=== PATIENT | male | born 1950 | race Caucasian/White ===

== ENCOUNTER 2022-08-08 08:27 | Inpatient (IN) | payer OTHER, MEDICARE ==
[2022-08-08] MEDS ORDERED: HYDROcodone/APAP 10-325MG 1 EACH TAB PO ONE (08:39)
--- NOTE | 2022-08-08 10:02 | XR ---
EXAMINATION TYPE: XR femur LT DATE OF EXAM: 08/08/2022 CLINICAL HISTORY: Pain TECHNIQUE: Two views of the left femur are obtained. COMPARISON: None FINDINGS: There is deformity of the greater trochanter of the left femur suspicious for fracture. Mi ld concentric narrowing of the hip joint. Mild diffuse osteopenia. Vascular calcification in the pelv is. IMPRESSION: 1. Findings suspicious for fracture greater trochanter left femur recommend CT scan for confirmation.
--- NOTE | 2022-08-08 10:04 | XR ---
EXAMINATION TYPE: XR pelvis AP view DATE OF EXAM: 08/08/2022 COMPARISON: NONE HISTORY: Pain Mild concentric narrowing of the hip joint bilaterally. Calcifications are likely vascular. There is questionable deformity involving the greater trochanter of the left hip.. No acute fracture is seen. Visualized bowel gas pattern is nonspecific. IMPRESSION: 1. Recommend CT of the left hip to assess greater trochanter for fracture..
--- NOTE | 2022-08-08 11:24 | CT ---
EXAMINATION TYPE: CT hip LT wo con DATE OF EXAM: 08/08/2022 COMPARISON: X-ray 08/08/2022 HISTORY: Pain CT DLP: 323.3 mGycm Automated exposure control for dose reduction was used. FINDINGS: There is a comminuted displaced fracture of the greater trochanter of the left femur with extension i nto the superior margin of the intertrochanteric line. Remaining osseous structures intact. Adjacent soft tissue edema noted. Fat-containing left inguinal h ernia noted. IMPRESSION: COMMINUTED DISPLACED FRACTURE GREATER TROCHANTER LEFT FEMUR WITH EXTENSION INTO THE SUPERIOR MARGIN O F THE INTERTROCHANTERIC LINE.
[2022-08-08] MEDS ORDERED: NALOXONE 0.4 MG/ML 1 ML VIAL IV PRN (12:07)
[2022-08-08] MEDS ORDERED: MAG HYDROX/AL HYDROX/SIMETH 30 ML CUP PO PRN (12:07)
[2022-08-08] MEDS ORDERED: DOCUSATE 100 MG CAP PO PRN (12:07)
[2022-08-08] MEDS ORDERED: TEMAZEPAM 15 MG CAP PO PRN (12:07)
[2022-08-08] MEDS ORDERED: ONDANSETRON 4 MG/2 ML VIAL IVP PRN (12:07)
--- NOTE | 2022-08-08 12:08 | ED ---
Fall HPI - General Chief Complaint: Fall Stated Complaint: Fall Time Seen by Provider: 08/08/22 08:32 Source: patient, EMS Mode of arrival: EMS - History of Present Illness Initial Comments: Patient had an accidental trip and fall last night. He denied his head. He did not lose conscious. He has pain in the left hip. The pain is worse with movement or walking. Pain does not radiate anywhere. He has taken medicine for this. - Related Data Home Medications Medication Instructions Recorded Confirmed Donepezil [Aricept] 5 mg PO HS 08/08/22 08/08/22 Escitalopram [Lexapro] 10 mg PO DAILY 08/08/22 08/08/22 LORazepam [Ativan] 0.5 mg PO HS 08/08/22 08/08/22 LORazepam [Ativan] 1 mg PO QAM 08/08/22 08/08/22 risperiDONE [RisperDAL] 3 mg PO BID 08/08/22 08/08/22 traZODone HCL 200 mg PO HS 08/08/22 08/08/22 Allergies Allergy/AdvReac Type Severity Reaction Status Date / Time No Known Allergies Allergy Verified 08/08/22 11:05 Review of Systems ROS Statement: Those systems with pertinent positive or pertinent negative responses have been documented in the HPI. ROS Other: All systems not noted in ROS Statement are negative. Past Medical History Smoking Status: Current every day smoker Past Alcohol Use History: None Reported Past Drug Use History: None Reported General Exam Limitations: no limitations General appearance: alert, in no apparent distress Head exam: Present: atraumatic, normocephalic, normal inspection Eye exam: Present: normal appearance, PERRL, EOMI. Absent: scleral icterus, conjunctival injection, periorbital swelling ENT exam: Present: normal exam, mucous membranes moist Neck exam: Present: normal inspection. Absent: tenderness, meningismus, lymphadenopathy Respiratory exam: Present: normal lung sounds bilaterally. Absent: respiratory distress, wheezes, rales, rhonchi, stridor Cardiovascular Exam: Present: regular rate, normal rhythm, normal heart sounds. Absent: systolic murmur, diastolic murmur, rubs, gallop, clicks GI/Abdominal exam: Present: soft, normal bowel sounds. Absent: distended, tenderness, guarding, rebound, rigid Extremities exam: Present: normal inspection, tenderness, normal capillary refill. Absent: full ROM, pedal edema, joint swelling, calf tenderness Back exam: Present: normal inspection Neurological exam: Present: alert, oriented X3, CN II-XII intact Psychiatric exam: Present: normal affect, normal mood Skin exam: Present: warm, dry, intact, normal color. Absent: rash Course Vital Signs 08/08/22 08/08/22 08:30 11:34 Temperature 98.1 F 98.1 F Pulse Rate 89 62 Respiratory 18 16 Rate Blood Pressure 124/92 114/53 O2 Sat by Pulse 98 98 Oximetry Medical Decision Making - Medical Decision Making Patient presents with an accidental trip and fall. I considered a CT of the head, but the patient denies head or neck injury and has had no loss of consciousness or other neurological symptoms. I did obtain x-ray of the left hip, as well as a CT of the left hip. These imaging studies were independently reviewed by me which show an intertrochanteric fracture. I ordered the patient pain medicine by mouth. I had a discussion with orthopedic surgeon. Patient will require admission to the hospital. Was pt. sent in by a medical professional or institution (, PA, NURSES DIRECTOR, urgent care, hospital, or correction...) When possible be specific @ -[No] Did you speak to anyone other than the patient for history (EMS, parent, family, police, friend...)? What history was obtained from this source @ -[No] Did you review nursing and triage notes (agree or disagree)? Why? @ -[I reviewed and agree with nursing and triage notes] Were old charts reviewed (outside hosp., previous admission, EMS record, old EKG, old radiological studies, urgent care reports/EKG's, correction records)? Report findings @ -[No old charts were reviewed] Differential Diagnosis (chest pain, altered mental status, abdominal pain women, abdominal pain men, vaginal bleeding, weakness, fever, dyspnea, syncope, headache, dizziness, GI bleed, back pain, seizure, CVA, palpatations, mental health)? @ -[not applicable] EKG interpreted by me (3pts min.). @ -[As above] X-rays interpreted by me (1pt min.). @ -[None done] CT interpreted by me (1pt min.). @ -[None done] U/S interpreted by me (1pt. min.). @ -[None done] What testing was considered but not performed or refused? (CT, X-rays, U/S, labs)? Why? @ -[None] What meds were considered but not given or refused? Why? @ -[None] Did you discuss the management of the patient with other professionals (professionals i.e. , PA, NURSES DIRECTOR, lab, RT, psych nurse, psychosocial rehabilitation counselor, medical assembly, teacher, police officer, protective services case worker)? Give summary @ -[No] Was smoking cessation discussed for >3mins.? @ -[No] Was critical care preformed (if so, how long)? @ -[No] Were there social determinants of health that impacted care today? How? (Homelessness, low income, unemployed, alcoholism, drug addiction, transportation, low edu. Level, literacy, decrease access to med. care, assisted, rehab)? @ -[No] Was there de-escalation of care discussed even if they declined (Discuss DNR or withdrawal of care, Hospice)? DNR status @ -[No] What co-morbidities impacted this encounter? (DM, HTN, Smoking, COPD, CAD, Cancer, CVA, ARF, Chemo, Hep., AIDS, mental health diagnosis, sleep apnea, morbid obesity)? @ -[None] Was patient admitted / discharged? Hospital course, mention meds given and route, prescriptions, significant lab abnormalities, going to OR and other pertinent info. @ -[hospital course] Undiagnosed new problem with uncertain prognosis? @ -[No] Drug Therapy requiring intensive monitoring for toxicity (Heparin, Nitro, Insulin, Cardizem)? @ -[No] Were any procedures done? @ -[No] Diagnosis/symptom? @ -[default] Acute, or Chronic, or Acute on Chronic? @ -[default] Uncomplicated (without systemic symptoms) or Complicated (systemic symptoms)? @ -[default] Side effects of treatment? @ -[No] Exacerbation, Progression, or Severe Exacerbation? @ -[No] Poses a threat to life or bodily function? How? (Chest pain, [place], HI, pneumonia, PE, COPD, DKA, ARF, appy, cholecystitis, CVA, Diverticulitis, Homicidal, Suicidal, threat to staff... and all critical care pts) @ -[No] Disposition Clinical Impression: Femur fracture, left Disposition: ADMITTED IP TO THIS HOSP Is patient prescribed a controlled substance at d/c from ED?: No Referrals: [facility],Clinic [Primary Care Provider] - 1-2 days
[2022-08-08 13:16] LABS: Partial Thromboplastin Time 24.1 sec (22.0-30.0); Prothrombin Time 10.4 sec (9.0-12.0)
[2022-08-08 13:18] LABS: Basophils % (A) 0 %; Eosinophils % (A) 0 %; HCT 39.5 % (39.0-53.0); HGB 13.2 gm/dL (13.0-17.5); Lymphocytes # (A) 1.7 k/uL (1.0-4.8); Lymphocytes % (A) 19 %; MCH 32.6 pg (25.0-35.0); MCHC 33.5 g/dL (31.0-37.0); MCV 97.5 fL (80.0-100.0); Mean Platelet Volume 7.1; Monocytes # (A) 0.7 k/uL (0-1.0); Monocytes % (A) 7 %; Neutrophils # (A) 6.3 k/uL (1.3-7.7); Neutrophils % (A) 72 %; Platelet Count 199 k/uL (150-450); RBC 4.05 m/uL (4.30-5.90); RDW 12.8 % (11.5-15.5); WBC 8.8 k/uL (3.8-10.6)
[2022-08-08 13:20] LABS: Calcium 8.6 mg/dL (8.4-10.2); Potassium 4.1 mmol/L (3.5-5.1)
--- NOTE | 2022-08-08 15:25 | XR ---
EXAMINATION TYPE: XR chest 1V portable DATE OF EXAM: 08/08/2022 2:55 PM COMPARISON: None TECHNIQUE: XR chest 1V portable Portable AP radiograph of the chest. CLINICAL INDICATION:Male, 71 years old with history of pre-op; FINDINGS: Lungs/Pleura: There is no evidence of pleural effusion, focal consolidation, or pneumothorax. Pulmonary vascularity: Unremarkable. Heart/mediastinum: Cardiomediastinal silhouette is unremarkable. Musculoskeletal: No acute osseous pathology. IMPRESSION: No acute cardiopulmonary disease/process.
[2022-08-08] MEDS: DONEPEZIL 5 MG TAB PO SCH (21:19)
[2022-08-08] MEDS: traZODone HCL 100 MG TAB PO SCH (21:19)
[2022-08-08] MEDS: risperiDONE 1 MG TAB PO SCH (21:19)
[2022-08-08] MEDS: LORazepam 0.5 MG TAB PO SCH (21:19)
--- NOTE | 2022-08-08 21:21 | P.HPOR ---
History of Present Illness H&P Date: 08/08/22 This patient is a 71- year old male who presented to [facility] emergency department today with complaints of left hip pain following a fall. Patient had a fall last evening at home. He continued to have pain in the left hip, therefore EMS transported patient to the emergency department. X-rays and CT scan in the emergency department revealed a non-displaced fracture of the left greater trochanter with extension into the intertrochanteric region. Patient was admitted under the care of orthopedic surgery. Patient is examined bedside this evening with Dr. Morataya. No verbalized complaints. Vital signs stable. Past Medical History Past Medical History: No Reported History History of Any Multi-Drug Resistant Organisms: None Reported Past Surgical History: No Surgical Hx Reported Past Anesthesia/Blood Transfusion Reactions: No Reported Reaction Past Psychological History: Anxiety, Bipolar, PTSD, Schizophrenia Additional Psychological History / Comment(s): Does not like bright lights secondary to PTSD from the Smoking Status: Current every day smoker Past Alcohol Use History: None Reported Past Drug Use History: None Reported - Past Family History Father Family Medical History: Cancer Medications and Allergies Home Medications Medication Instructions Recorded Confirmed Type Donepezil [Aricept] 5 mg PO HS 08/08/22 08/08/22 History Escitalopram [Lexapro] 10 mg PO DAILY 08/08/22 08/08/22 History LORazepam [Ativan] 0.5 mg PO HS 08/08/22 08/08/22 History LORazepam [Ativan] 1 mg PO QAM 08/08/22 08/08/22 History risperiDONE [RisperDAL] 3 mg PO BID 08/08/22 08/08/22 History traZODone HCL 200 mg PO HS 08/08/22 08/08/22 History Allergies Allergy/AdvReac Type Severity Reaction Status Date / Time Penicillins Allergy Rash/Hives Verified 08/08/22 15:27 Physical Examination On examination, patient is lying in bed in no apparent distress. He is alert and answers questions appropriately. Head appears normocephalic and atraumatic. Breathing appears non-labored. Motor, sensory function grossly intact LLE. Results X-ray left femur and pelvis, CT scan left hip reviewed. - Labs Labs: Abnormal Lab Results - Last 24 Hours (Table) 01/18/23 01/18/23 Range/Units 12:40 12:40 RBC 4.05 L (4.30-5.90) m/uL Sodium 136 L (137-145) mmol/L BUN 21 H (9-20) mg/dL Glucose 100 H (74-99) mg/dL H & H 08/08/22 Range/Units 12:40 Hgb 13.2 (13.0-17.5) gm/dL Hct 39.5 (39.0-53.0) % Coagulation 08/08/22 Range/Units 12:40 INR 1.0 (<1.2) Result Diagrams: 08/08/22 12:40 08/08/22 12:40 Assessment and Plan Assessment: Non-displaced fracture left greater trochanter with intertrochanteric extension Plan: - Patient was discussed with Dr. Morataya. MRI left hip ordered to further evaluate extent of intertrochanteric extension of fracture. - Patient is to remain non-weight bearing on left lower extremity. Pain management as needed. - Internal medicine consulted for medical management. - Further recommendations pending MRI results. Patient will be made NPO at midnight for possible OR tomorrow afternoon.
--- NOTE | 2022-08-09 01:14 | P.CONS ---
History of Present Illness - Reason for Consult Consult date: 08/08/22 - History of Present Illness The patient is 71-year-old male with a PMH of PTSD and depression, resident of [facility], brought into the emergency room via EMS for left hip pain. The patient reports that he fell at his living facility when he was walking to the bathroom and lost his balance, falling on his left side and hitting his hip on the ground. He reports constant pain of the left hip and being unable to ambulate. He denied hitting his head or losing consciousness. Reports the pain is a 4 out of 10 at rest and 10 out of 10 with any movement of the left leg. Reports that he normally is able to ambulate without assistive devices and is able to climb stairs without difficulty. Denied experiencing headaches, visual disturbances, chest discomfort, shortness of breath, nausea, palpitations, vomiting. Denied fever, chills, cough, abdominal pain, diarrhea. Denied lower extremities swelling, numbness, or tingling. Left hip CT in the emergency room revealed a comminuted displaced fracture of the greater trochanter of the left femur with extension into the superior margin of the intertrochanteric line. Chest x-ray was unremarkable. EKG revealed normal sinus rhythm at [address]/T-wave changes noted as reviewed by me. Review of systems: Pertinent positives and negatives as discussed in HPI, a complete review of systems was performed and all other systems are negative. Physical examination: General: non toxic, no distress, appears at stated age, normal weight Derm: no unusual rashes/lesions, warm Head: atraumatic, normocephalic, symmetric Eyes: EOMI, no lid lag, anicteric sclera, pupils equal round reactive to light ENT: Nose and ears atraumatic Neck: No cervical lymphadenopathy, trachea midline, supple Mouth: no lip lesion, mucus membranes moist Cardiovascular: S1S2 reg, no murmur, positive dorsalis pedis pulse bilateral, no edema Lungs: CTA bilateral, no rhonchi, no rales, no accessory muscle use Abdominal: soft, nontender to palpation, no guarding Ext: muscle strength 5 out of 5 bilateral upper extremities, strength 5 out of 5 right lower extremity and 2 out of 5 of proximal left lower extremity due to pain, no gross muscle atrophy, no contractures, left lateral hip tenderness without overlying skin abnormalities Neuro: CN II-XI grossly intact, no gross focal neuro deficits Psych: Alert, oriented, appropriate affect Assessment/plan Preoperative evaluation -RCRI score: 0 points (3.9% 30 day risk of cardiovascular complications) -METS > 4 -Patient denied experiencing exertional chest discomfort or SOB. Reports that he is able to climb a flight of stairs without difficulty. Patient reports he is independent in most ADLs -Laboratory evaluation and EKG reviewed and grossly unremarkable -Patient is currently optimized for orthopedic procedure with no clear modifiable risk factors Chronic conditions: PTSD, depression -Continue with home meds Left femoral fracture -Defer management including pain control and DVT prophylaxis to the primary surgery service We appreciate this opportunity to be involved in this patient's care. We will follow the patient with you. For any further questions, please not hesitate to contact the [facility] [place] inpatient team. Past Medical History Past Medical History: No Reported History History of Any Multi-Drug Resistant Organisms: None Reported Past Surgical History: No Surgical Hx Reported Past Anesthesia/Blood Transfusion Reactions: No Reported Reaction Past Psychological History: Anxiety, Bipolar, PTSD, Schizophrenia Additional Psychological History / Comment(s): Does not like bright lights secondary to PTSD from the Smoking Status: Current every day smoker Past Alcohol Use History: None Reported Past Drug Use History: None Reported - Past Family History Father Family Medical History: Cancer Medications and Allergies Home Medications Medication Instructions Recorded Confirmed Type Donepezil [Aricept] 5 mg PO HS 08/08/22 08/08/22 History Escitalopram [Lexapro] 10 mg PO DAILY 08/08/22 08/08/22 History LORazepam [Ativan] 0.5 mg PO HS 08/08/22 08/08/22 History LORazepam [Ativan] 1 mg PO QAM 08/08/22 08/08/22 History risperiDONE [RisperDAL] 3 mg PO BID 08/08/22 08/08/22 History traZODone HCL 200 mg PO HS 08/08/22 08/08/22 History Allergies Allergy/AdvReac Type Severity Reaction Status Date / Time Penicillins Allergy Rash/Hives Verified 08/08/22 15:27 Physical Exam Vitals: Vital Signs Temp Pulse Pulse Resp BP BP Pulse Ox 08/08/22 19:33 98.2 F 83 17 104/61 95 08/08/22 14:00 98.2 F 67 18 96 08/08/22 12:42 98 F 66 16 113/59 97 08/08/22 11:34 98.1 F 62 16 114/53 98 08/08/22 08:30 98.1 F 89 18 124/92 98 Intake and Output 08/08/22 08/08/22 08/09/22 14:59 22:59 06:59 Intake Total 500 Output Total 500 Balance 500 -500 Intake: Oral 500 Output: Urine 500 Other: Voiding Method Urinal Diaper Weight 65.771 kg 65.771 kg Results CBC & Chem 7: 08/08/22 12:40 08/08/22 12:40 Labs: Abnormal Lab Results - Last 24 Hours (Table) 08/08/22 08/08/22 Range/Units 12:40 12:40 RBC 4.05 L (4.30-5.90) m/uL Sodium 136 L (137-145) mmol/L BUN 21 H (9-20) mg/dL Glucose 100 H (74-99) mg/dL
[2022-08-09] MEDS: LORazepam 1 MG TAB PO SCH (09:00)
[2022-08-09] MEDS: ESCITALOPRAM 10 MG TAB PO SCH (09:00)
[2022-08-09] MEDS: risperiDONE 1 MG TAB PO SCH ×2 (09:01→20:34)
[2022-08-09 11:46] LABS: Glucose,Whole Blood 101 mg/dL (70-110)
--- NOTE | 2022-08-09 11:52 | MR ---
EXAMINATION TYPE: MR hip LT wo con DATE OF EXAM: 08/09/2022 COMPARISON: CT scan 08/08/2022 HISTORY: GT fracture, r/u IT extension. Standard multiplanar, multisequence MRI departmental protocol Multiplanar, multisequence images of the left hip were acquired without contrast. FINDINGS: There is diffuse abnormal soft tissue edema along the lateral margin of the left hip and femur. There appears to be irregular signal characteristics at the lateral insertion of the gluteus medius compat ible with partial tear. There is a comminuted displaced fracture of the greater trochanter with definitive intertrochanteric extension have best seen on coronal T1 axial image 15. Correlate for chronic cystitis. Remaining osseous structures intact. IMPRESSION: 1. Comminuted greater trochanteric fracture left femur with intertrochanteric extension confirmed. 2. Extensive soft tissue edema along the lateral margin of the left hip and femur with findings highl y suspicious for a partial tear of the lateral insertion of the gluteus medius.
[2022-08-09] MEDS ORDERED: TRANEXAMIC ACID 1,000 MG in SODIUM CHLORIDE 0.9% 100 ML IVPB ONE ×2 (15:55→15:56)
[2022-08-09] MEDS ORDERED: LACTATED RINGERS 1,000 ML IV ONE ×2 (16:02→18:25)
[2022-08-09] MEDS ORDERED: ONDANSETRON 4 MG/2 ML VIAL IVP ONE (16:12)
[2022-08-09] MEDS ORDERED: DEXAMETHASONE SOD PHOSPHATE 4 MG/ML 1 ML VIAL IVP ONE (16:12)
[2022-08-09] MEDS ORDERED: TRANEXAMIC ACID IN NACL,ISO-OS 1,000 MG/100 ML BAG ONE (17:15)
[2022-08-09] MEDS ORDERED: PHENYLEPHRINE-0.9% NACL SYG 1,000 MCG/10 ML SYRINGE ONE (17:15)
[2022-08-09] MEDS ORDERED: MIDAZOLAM 2 MG/2 ML VIAL ONE (17:15)
[2022-08-09] MEDS ORDERED: fentaNYL (PF) 50 MCG/ML 2 ML AMP ONE (17:15)
[2022-08-09] MEDS ORDERED: ePHEDrine 50 MG/ML 1 ML VIAL ONE (17:15)
[2022-08-09] MEDS ORDERED: PROPOFOL 10 MG/ML 20 ML VIAL IV ONE (17:15)
[2022-08-09 17:16] LABS: Glucose,Whole Blood 100 mg/dL (70-110)
[2022-08-09] MEDS ORDERED: HYDROmorphone 0.5 MG/0.5 ML SYRINGE IVP PRN ×3 (18:56)
--- NOTE | 2022-08-09 18:57 | P.OP ---
Date of Procedure: 08/09/22 Preoperative Diagnosis: 1. Left greater trochanter fracture with intertrochanteric extension 2. Posttraumatic stress disorder Postoperative Diagnosis: Same Procedure(s) Performed: Operative fixation of left intertrochanteric hip fracture with intramedullary hip screw Anesthesia: spinal Surgeon: Herman Morataya Cafe Attendant #1: Jony Kelley Estimated Blood Loss (ml): 50 IV fluids (ml): 800 Pathology: none sent Condition: stable Disposition: PACU Indications for Procedure: The patient's request 71-year-old male with a medical history significant for posterior medical stress disorder who sustained a ground-level fall resulting in the left hip injury. He was seen in the emergency department and admitted under the care of my partner Dr. Siu. Dr. Siu was going out of town and requested that I assist in managing this patient. The patient had an x-ray and computed tomography scan which showed an isolated greater trochanteric fracture with questionable intertrochanteric extension. An MRI was obtained which showed intertrochanteric extension with almost the entire intertrochanteric region involved. I discussed with the sister need for operative intervention to stabilize the fracture and prevent displacement while also allowing early mobilization. I met with the patient and their family preoperatively to discuss their injury and treatment options. They have an extra-capsular, intertrochanteric hip fr acture and my recommendation was to stabilize the fracture with an intramedullary hip screw to facilitate early mobilization. We discussed the potential risks and complications of this surgical procedure including but certainly not limited to risks from anesthesia, superficial infection, deep infection, fracture nonunion, fracture malunion, hardware failure including broken hardware, varus collapse with lag screw cut out of the femoral head, progression of hip arthritis, limb length discrepancy, symptomatic hardware, need for further surgery including hardware removal and conversion to arthro plasty, DVT, PE, acute coronary event, pressure ulcers, urinary tract infection, failure to thrive, an inability to regain preinjury level of function, and possibly . The patient and their family understand these potential complications and also awknowledge that other less common complications are possible. They provided both their verbal and written consent to go forward with operative fixation of their hip fracture with an intramedullary hip screw. Description of Procedure: The patient was identified in preoperative holding and the correct operative extremity was marked with my initials. I reviewed the consent form with the patient and their family and all of their questions were answered. The patient was then brought back to the operating room by anesthesia. Anesthesia, preoperative antibiotics, and tranexamic acid were given by the anesthesia team while on the gurney. Both ankles were padded with webril and boots for the [place] table were applied. The patient was then carefully transferred onto the [place] table. A perineal post was immediately placed. The contralateral arm was secured on a well-padded arm ledesma. The ipsilateral arm was draped across the chest and secured with a pillow, foam, and paper tape to allow access to the proximal femur. Nonsterile drapes were applied to the operative extremity. The height of the table was elevated and the contralateral extremity was dropped towards the floor to facilitate imaging. A timeout was performed identifying the correct patient, operative extremity, and procedure. Fluoroscopy was brought in to assess the fracture. A provisional reduction was performed using longitudinal traction, adduction, and internal rotation. An AP and lateral view were obtained to assess the reduction. The operative extremity was then prepped and draped in the standard sterile fashion. A straight incision was made at the tip of the greater trochanter and extended proximally for 3 cm. Skin and subcutaneous tissues were incised sharply. The underlying fascia was incised in line with the skin incision. An awl was placed just medial to the tip of the greater trochanter on the AP view and coli near with the canal on the lateral view. A 3.2 mm guide pin was then advanced into the proximal femur. The position of the guidepin was verified with fluoroscopy. An opening reamer and soft tissue cannula were placed over the guidepin and used to open the proximal femur to the level of the lesser trochanter. The 3.2 mm guide pin and opening reamer were removed. A short gamma nail was dispensed, hooked up to the targeting arm and I verified that the trochar through the targeting arm lined up with the slots on the nail. The nail was then impacted into the proximal femur until the appropriate depth had been reached. A small stab incision was made over the lateral aspect of the femur using the targeting arm as a reference for the lag screw. Incision was carried down to the skin and fascia down to the lateral cortex of the femur. The trocar was then placed up to the lateral cortex of the femur and a guidepin was placed in the low center position on the AP view and centered in the femoral head on the lateral view. Once the position of the guidewire was verified, we reamed to appropriate depth and placed a lag screw over the guidewire and into the femoral head. The position of the lag screw was assessed with fluoroscopy. The guidewire was then removed from the femoral head. The set screw was placed proximally, brought fully down and then released a quarter turn to allow c ompression. A final stab incision was made over the lateral femur at the site of the distal interlocking screw, again using the targeting arm as a reference. The trocar and sleeve were placed to the lateral cortex of the femur. We then drilled and placed a distal interlocking screw. Final fluoroscopic images were taken showing excellent reduction of the fracture and appropriate position of the implants. All wounds were thoroughly irrigated and closed in layers. Sterile dressings were applied. The drapes were taken down, the patient was transferred off the [place] table, and was brought to recovery having tolerated the procedure well. Jony Kelley PA-C was required as a skilled podiatry assistant for patient positioning, retraction, placement of implants, closure of wounds, and application of d ressings. PLAN: The patient can weight-bear as tolerated on their operative extremity. 2 doses of postoperative antibiotics. DVT prophylaxis with aspirin 81 mg twice a day starting the day of surgery. Dressing change on postoperative day #2. Appreciate Internal Medical assistance with perioperative medical management. Discharge planning in process.
--- NOTE | 2022-08-09 19:04 | P.PN ---
Progress Note - Text Progress Note Date: 08/09/22 Patient unavailable to be seen. Went down for MRI hip earlier. Currently in the OR.
[2022-08-09] MEDS: LACTATED RINGERS 1,000 ML IV SCH (20:01)
[2022-08-09] MEDS: DONEPEZIL 5 MG TAB PO SCH (20:34)
[2022-08-09] MEDS: traZODone HCL 100 MG TAB PO SCH (20:34)
[2022-08-09] MEDS: ASPIRIN 81 MG PO SCH (20:35)
[2022-08-09] MEDS: SENNOSIDES-DOCUSATE SODIUM 1 EACH TAB PO SCH (20:35)
[2022-08-09] MEDS: LORazepam 0.5 MG TAB PO SCH (20:35)
[2022-08-09 21:12] LABS: Basophils % (A) 0 %; Eosinophils % (A) 0 %; HCT 42.3 % (39.0-53.0); HGB 13.5 gm/dL (13.0-17.5); Lymphocytes # (A) 0.5 k/uL (1.0-4.8); Lymphocytes % (A) 5 %; MCH 32.3 pg (25.0-35.0); Mean Platelet Volume 7.3; Monocytes # (A) 0.2 k/uL (0-1.0); Monocytes % (A) 2 %; Neutrophils # (A) 9.5 k/uL (1.3-7.7); Neutrophils % (A) 92 %; Platelet Count 193 k/uL (150-450); RBC 4.19 m/uL (4.30-5.90); RDW 13.2 % (11.5-15.5); WBC 10.3 k/uL (3.8-10.6)
--- NOTE | 2022-08-09 21:19 | XR ---
PROCEDURE: XR Hip Complete LT; 6:55 PM CLINICAL INDICATION: Intraoperative Left hip fx TECHNIQUE: Department protocol COMPARISON: None FINDINGS: Fluoroscopy was used for the procedure; total of 59 seconds were utilized. 5 images were digitally stored on PACS. IMPRESSION: Fluoroscopy-guided Left hip procedure.
[2022-08-10] MEDS: LACTATED RINGERS 1,000 ML IV SCH ×3 (06:17→18:15)
--- NOTE | 2022-08-10 06:47 | FL ---
Intraoperative/procedural fluoroscopic services were provided. Total fluoroscopy time is 59 seconds w ith a total of 5 submitted images to PACS. Please see the operative note for further details.
[2022-08-10] MEDS: LORazepam 1 MG TAB PO SCH (09:07)
[2022-08-10] MEDS: risperiDONE 1 MG TAB PO SCH ×2 (09:07→20:32)
[2022-08-10] MEDS: ASPIRIN 81 MG PO SCH ×2 (09:07→20:31)
[2022-08-10] MEDS: ESCITALOPRAM 10 MG TAB PO SCH (09:07)
--- NOTE | 2022-08-10 15:07 | P.PN ---
Subjective Progress Note Date: 08/10/22 This patient is a 71-year-old male who is status-post operative fixation of left intertrochanteric hip fracture with intramedullary hip screw on 08/09/22. Today is postoperative day #1. The patient is examined bedside this morning with Dr. Yu. Patient is currently up to the bedside chair. He states the pain in the left hip is well controlled at this time. No new complaints or concerns. Vital signs stable. Objective - Vital Signs Vital signs: Vital Signs Temp 97.5 F L 08/10/22 07:04 Pulse 80 08/10/22 07:04 Resp 17 08/10/22 07:04 BP 122/69 08/10/22 07:04 Pulse Ox 97 08/10/22 07:04 FiO2 Intake & Output 08/09/22 08/10/22 08/10/22 18:59 06:59 18:59 Intake Total 1550 1911 Output Total 90 4530 1550 Balance 1460 -2619 -1550 Intake: IV 1550 Intake, IV Titration 1200 Amount Lactated Ringers 1,000 ml 1200 @ 100 mls/hr IV .Q10H KHALIDA Rx#:[id number] Oral 711 Output: Urine 40 4530 1550 Uretheral ([place]) 2700 100 Estimated Blood Loss 50 Other: Voiding Method Urinal Indwelling Catheter Indwelling Catheter # Voids 2 # Bowel Movements 1 - Exam On examination, patient is sitting up in a bedside chair in no apparent distress. He is alert and answers questions appropriately. Surgical dressings in place over the left hip are clean, dry, and intact. Patient is neurovascular intact of the left lower extremity. - Labs CBC & Chem 7: 08/09/22 20:07 08/08/22 12:40 Labs: Abnormal Lab Results - Last 24 Hours (Table) 08/09/22 Range/Units 20:07 RBC 4.19 L (4.30-5.90) m/uL MCV 101.0 H (80.0-100.0) fL Neutrophils # 9.5 H (1.3-7.7) k/uL Lymphocytes # 0.5 L (1.0-4.8) k/uL Assessment and Plan Assessment: Status-post operative fixation of left intertrochanteric hip fracture with intramedullary hip screw on 1/19/23. Post-operative day #1. Plan: - Weight-bear to tolerance on operative extremity with a walker. Up with assistance. - Physical therapy for gait and balance training. - Pain management as needed. Aspirin 81 mg BID for DVT prophylaxis. - Leave operative dressings in place. - 2 doses of postoperative IV antibiotics complete. - Medical management per internal medicine team. - Case management consulted for discharge planning.
--- NOTE | 2022-08-10 15:34 | P.PN ---
Subjective Progress Note Date: 08/10/22 Patient was seen and examined. No acute events overnight. Patient reports well-controlled pain in his left hip. Currently sitting up in a chair. Plans to work with physical therapy later on today. General: non toxic, no distress, appears at stated age Derm: warm, dry Head: atraumatic, normocephalic, symmetric Eyes: EOMI, no lid lag, anicteric sclera Mouth: no lip lesion, mucus membranes moist Cardiovascular: S1S2 reg, no murmur Lungs: CTA bilateral, no rhonchi, no rales , no accessory muscle use Ext: no gross muscle atrophy, no edema, no contractures Neuro: no focal neuro deficits Psych: Alert, oriented, appropriate affect Left femoral fracture POD 1 -Defer management including pain control and DVT prophylaxis to the primary surgery service Preoperative evaluation -RCRI score: 0 points (3.9% 30 day risk of cardiovascular complications) -METS > 4 -Patient denied experiencing exertional chest discomfort or SOB. Reports that he is able to climb a flight of stairs without difficulty. Patient reports he is independent in most ADLs -Laboratory evaluation and EKG reviewed and grossly unremarkable -Patient is currently optimized for orthopedic procedure with no clear modifiable risk factors Chronic conditions: PTSD, depression -Continue with home meds PT and OT consulted. He is pending clinical improvement. Medically stable. Thank you for this consultation. Please call [facility] with additional questions or concerns. Objective - Vital Signs Vital signs: Vital Signs Temp 97.5 F L 08/10/22 07:04 Pulse 80 08/10/22 07:04 Resp 17 08/10/22 07:04 BP 122/69 08/10/22 07:04 Pulse Ox 97 08/10/22 07:04 FiO2 Intake & Output 08/09/22 08/10/22 08/10/22 18:59 06:59 18:59 Intake Total 1550 1911 Output Total 90 4530 1550 Balance 1460 -2619 -1550 Intake: IV 1550 Intake, IV Titration 1200 Amount Lactated Ringers 1,000 ml 1200 @ 100 mls/hr IV .Q10H KHALIDA Rx#:[id number] Oral 711 Output: Urine 40 4530 1550 Uretheral ([place]) 2700 100 Estimated Blood Loss 50 Other: Voiding Method Urinal Indwelling Catheter Indwelling Catheter # Voids 2 # Bowel Movements 1 - Labs CBC & Chem 7: 08/09/22 20:07 08/08/22 12:40 Labs: Abnormal Lab Results - Last 24 Hours (Table) 08/09/22 Range/Units 20:07 RBC 4.19 L (4.30-5.90) m/uL MCV 101.0 H (80.0-100.0) fL Neutrophils # 9.5 H (1.3-7.7) k/uL Lymphocytes # 0.5 L (1.0-4.8) k/uL
[2022-08-10] MEDS: SENNOSIDES-DOCUSATE SODIUM 1 EACH TAB PO SCH (20:32)
[2022-08-10] MEDS: LORazepam 0.5 MG TAB PO SCH (20:32)
[2022-08-10] MEDS: traZODone HCL 100 MG TAB PO SCH (20:32)
[2022-08-10] MEDS: DONEPEZIL 5 MG TAB PO SCH (20:32)
[2022-08-11] MEDS: ASPIRIN 81 MG PO SCH ×2 (08:35→20:41)
[2022-08-11] MEDS: LORazepam 1 MG TAB PO SCH (08:35)
[2022-08-11] MEDS: ESCITALOPRAM 10 MG TAB PO SCH (08:35)
[2022-08-11] MEDS: risperiDONE 1 MG TAB PO SCH ×2 (08:35→20:42)
[2022-08-11] MEDS: HYDROcodone/APAP 5-325MG 1 EACH TAB PO PRN ×2 (08:55→15:13)
--- NOTE | 2022-08-11 11:04 | P.PN ---
Subjective Progress Note Date: 08/11/22 The patient is complaining of some discomfort in his left hip this morning but is otherwise without complaints. Objective - Vital Signs Vital signs: Vital Signs Temp 97.8 F 08/11/22 06:58 Pulse 84 08/11/22 08:00 Resp 18 08/11/22 08:00 BP 97/58 08/11/22 06:58 Pulse Ox 98 08/11/22 06:58 FiO2 Intake & Output 08/10/22 08/11/22 08/11/22 18:59 06:59 18:59 Output Total 1770 0 Balance -1770 0 Output: Urine 1770 0 Uretheral ([place]) 100 Other: Voiding Method Indwelling Catheter Urinal Urinal # Voids 1 - Exam The patient is sitting in a chair with a blanket over his head. After removal of the blanket he appears in no apparent distress and is alert and able to answer questions. Focused exam of the left hip was conducted. On inspection there clean-appearing dressings. His thigh and calf are soft. He is able to actively dorsiflex and plantar flex his ankle and his toes. - Labs CBC & Chem 7: 08/09/22 20:07 08/08/22 12:40 Assessment and Plan Assessment: Postoperative day #2 status post left hip gamma nail Post-traumatic stress disorder Plan: The patient is doing well from orthopedic standpoint. Continue postoperative care from an orthopedic standpoint as outlined previously. I encouraged the patient to mobilize out of bed as his hip has been surgically repaired and he can weight-bear as tolerated with assistance. We're currently the process of discharge planning.
--- NOTE | 2022-08-11 13:31 | P.PN ---
Subjective Progress Note Date: 08/11/22 Patient was seen and examined. No acute events overnight. Patient reports well-controlled pain in his left hip. Currently sitting up in a chair. Plans to work with physical therapy later on today. General: non toxic, no distress, appears at stated age Derm: warm, dry Head: atraumatic, normocephalic, symmetric Eyes: EOMI, no lid lag, anicteric sclera Mouth: no lip lesion, mucus membranes moist Cardiovascular: S1S2 reg, no murmur Lungs: CTA bilateral, no rhonchi, no rales , no accessory muscle use Ext: no gross muscle atrophy, no edema, no contractures Neuro: no focal neuro deficits Psych: Alert, oriented, appropriate affect Left femoral fracture POD 2 -Defer management including pain control and DVT prophylaxis to the primary surgery service Preoperative evaluation -RCRI score: 0 points (3.9% 30 day risk of cardiovascular complications) -METS > 4 -Patient denied experiencing exertional chest discomfort or SOB. Reports that he is able to climb a flight of stairs without difficulty. Patient reports he is independent in most ADLs -Laboratory evaluation and EKG reviewed and grossly unremarkable -Patient is currently optimized for orthopedic procedure with no clear modifiable risk factors Chronic conditions: PTSD, depression -Continue with home meds PT and OT consulted. He is pending clinical improvement. Medically stable. Thank you for this consultation. Please call [facility] with additional questions or concerns. Objective - Vital Signs Vital signs: Vital Signs Temp 97.8 F 08/11/22 06:58 Pulse 84 08/11/22 08:00 Resp 18 08/11/22 08:00 BP 97/58 08/11/22 06:58 Pulse Ox 98 08/11/22 06:58 FiO2 Intake & Output 08/10/22 08/11/22 08/11/22 18:59 06:59 18:59 Output Total 1770 0 Balance -1770 0 Output: Urine 1770 0 Uretheral ([place]) 100 Other: Voiding Method Indwelling Catheter Urinal Urinal # Voids 1 - Labs CBC & Chem 7: 08/09/22 20:07 08/08/22 12:40
[2022-08-11] MEDS: LACTATED RINGERS 1,000 ML IV SCH (15:09)
[2022-08-11] MEDS: SENNOSIDES-DOCUSATE SODIUM 1 EACH TAB PO SCH (20:42)
[2022-08-11] MEDS: LORazepam 0.5 MG TAB PO SCH (20:42)
[2022-08-11] MEDS: traZODone HCL 100 MG TAB PO SCH (20:42)
[2022-08-11] MEDS: DONEPEZIL 5 MG TAB PO SCH (20:42)
[2022-08-11 22:17] LABS: Basophils # (A) 0.06 X 10*3/uL (0.00-0.10); Basophils % (A) 0.7 %; Eosinophils # (A) 0.32 X 10*3/uL (0.04-0.35); Eosinophils % (A) 3.5 %; HCT 36.8 % (39.6-50.0); HGB 11.7 g/dL (13.0-17.0); Immature Grans, Automated 0.2 %; Lymphocytes # (A) 2.22 X 10*3/uL (0.90-5.00); Lymphocytes % (A) 24.4 %; MCH 32.9 pg (27.0-32.0); MCHC 31.8 g/dL (32.0-37.0); MCV 103.4 fL (80.0-97.0); Monocytes # (A) 0.99 X 10*3/uL (0.20-1.00); Monocytes % (A) 10.9 %; NRBC Per 100 WBC 0 /100 WBCS (0.0-0.0); Neutrophils # (A) 5.47 X 10*3/uL (1.80-7.70); Neutrophils % (A) 60.3 %; Platelet Count 200 X 10*3/uL (140-440); RBC 3.56 X 10*6/uL (4.40-5.60); RDW 13.2 % (11.5-14.5); WBC 9.08 X 10*3/uL (4.50-10.00)
[2022-08-12] MEDS: ASPIRIN 81 MG PO SCH ×2 (08:34→21:10)
[2022-08-12] MEDS: risperiDONE 1 MG TAB PO SCH ×2 (08:34→21:10)
[2022-08-12] MEDS: LORazepam 1 MG TAB PO SCH (08:34)
[2022-08-12] MEDS: ESCITALOPRAM 10 MG TAB PO SCH (08:34)
--- NOTE | 2022-08-12 08:52 | P.PN ---
Subjective Progress Note Date: 08/12/22 Overall the patient is doing well. He complains of discomfort in his left hip. He has no other complaints. Objective - Vital Signs Vital signs: Vital Signs Temp 98.1 F 08/12/22 07:40 Pulse 82 08/12/22 07:40 Resp 17 08/12/22 07:40 BP 113/55 08/12/22 07:40 Pulse Ox 92 L 08/12/22 07:40 FiO2 Intake & Output 08/11/22 08/12/22 08/12/22 18:59 06:59 18:59 Intake Total 597 Output Total 600 Balance 597 -600 Intake: Oral 597 Output: Urine 600 Other: Voiding Method Urinal Urinal # Voids 1 2 # Bowel Movements 1 1 - Exam The patient is resting comfortably in bed. He appears to be in no distress. He is alert and able to answer questions. On inspection of left hip there clean- appearing surgical dressings. His thigh is soft. Motor and sensory function are intact throughout the left leg. - Labs CBC & Chem 7: 08/11/22 19:31 08/08/22 12:40 Labs: Abnormal Lab Results - Last 24 Hours (Table) 08/11/22 Range/Units 19:31 RBC 3.56 L (4.40-5.60) X 10*6/uL Hgb 11.7 L (13.0-17.0) g/dL Hct 36.8 L (39.6-50.0) % MCV 103.4 H (80.0-97.0) fL MCH 32.9 H (27.0-32.0) pg MCHC 31.8 L (32.0-37.0) g/dL MPV 9.0 L (9.5-12.2) fL Assessment and Plan Assessment: Postoperative day #3 status post left hip gamma nail PTSD Plan: Continue postoperative care as previously documented. Continue attempts to mobilize patient out of bed with therapy. Anticipate discharge back to facility tomorrow.
--- NOTE | 2022-08-12 11:14 | P.PN ---
Subjective Progress Note Date: 08/12/22 Patient was seen and examined. No acute events overnight. Patient reports well-controlled pain in his left hip at rest but worsened with movement and walking. Currently sitting up in a chair. Requesting pop. General: non toxic, no distress, appears at stated age Derm: warm, dry Head: atraumatic, normocephalic, symmetric Eyes: EOMI, no lid lag, anicteric sclera Mouth: no lip lesion, mucus membranes moist Cardiovascular: S1S2 reg, no murmur Lungs: CTA bilateral, no rhonchi, no rales , no accessory muscle use Ext: no gross muscle atrophy, no edema, no contractures Neuro: no focal neuro deficits Psych: Alert, oriented, appropriate affect Left femoral fracture POD 3 -Defer management including pain control and DVT prophylaxis to the primary surgery service Macrocytic anemia -Hg 11.7 MCV 103.4 -Possibly dilution, patient has been receiving LR at 100 cc/hr -No indication for transfusion Preoperative evaluation -RCRI score: 0 points (3.9% 30 day risk of cardiovascular complications) -METS > 4 -Patient denied experiencing exertional chest discomfort or SOB. Reports that he is able to climb a flight of stairs without difficulty. Patient reports he is independent in most ADLs -Laboratory evaluation and EKG reviewed and grossly unremarkable -Patient is currently optimized for orthopedic procedure with no clear modifiable risk factors Chronic conditions: PTSD, depression -Continue with home meds PT and OT consulted. He is pending clinical improvement. Medically stable. Thank you for this consultation. Please call [facility] with additional questions or concerns. Objective - Vital Signs Vital signs: Vital Signs Temp 98.1 F 08/12/22 07:40 Pulse 82 08/12/22 07:40 Resp 17 08/12/22 07:40 BP 113/55 08/12/22 07:40 Pulse Ox 92 L 08/12/22 07:40 FiO2 Intake & Output 08/11/22 08/12/22 08/12/22 18:59 06:59 18:59 Intake Total 597 Output Total 600 Balance 597 -600 Intake: Oral 597 Output: Urine 600 Other: Voiding Method Urinal Urinal # Voids 1 2 # Bowel Movements 1 1 - Labs CBC & Chem 7: 08/11/22 19:31 08/08/22 12:40 Labs: Abnormal Lab Results - Last 24 Hours (Table) 08/11/22 Range/Units 19:31 RBC 3.56 L (4.40-5.60) X 10*6/uL Hgb 11.7 L (13.0-17.0) g/dL Hct 36.8 L (39.6-50.0) % MCV 103.4 H (80.0-97.0) fL MCH 32.9 H (27.0-32.0) pg MCHC 31.8 L (32.0-37.0) g/dL MPV 9.0 L (9.5-12.2) fL
[2022-08-12] MEDS: LORazepam 0.5 MG TAB PO SCH (21:10)
[2022-08-12] MEDS: DONEPEZIL 5 MG TAB PO SCH (21:10)
[2022-08-12] MEDS: SENNOSIDES-DOCUSATE SODIUM 1 EACH TAB PO SCH (21:11)
[2022-08-12] MEDS: traZODone HCL 100 MG TAB PO SCH (21:11)
[2022-08-13 07:48] VITALS: RESP 16
[2022-08-13] MEDS: LACTATED RINGERS 1,000 ML IV SCH (08:57)
[2022-08-13] MEDS: ASPIRIN 81 MG PO SCH (08:58)
[2022-08-13] MEDS: risperiDONE 1 MG TAB PO SCH (08:58)
[2022-08-13] MEDS: LORazepam 1 MG TAB PO SCH (08:58)
[2022-08-13] MEDS: ESCITALOPRAM 10 MG TAB PO SCH (08:58)
--- NOTE | 2022-08-13 10:32 | P.DS ---
Providers Date of admission: 08/08/22 12:07 Expected date of discharge: 08/13/22 Attending physician: Herman Morataya Consults: 08/08/22 21:10 Consult Physician Routine Consulting Provider: Nikolai Glover Consult Reason/Comments: medical clearance for surgery 08/09/22 Do you want consulting provider notified?: Yes Primary care physician: [facility] Hospital Course: This is a 71-year-old male who sustained a ground level fall resulting in a left intertrochanteric hip fracture. Patient was admitted under the care of orthopedic surgery with a consult placed to internal medicine for pre-operative medical clearance. Patient underwent operative fixation of left intertrochanteric hip fracture with a short intramedullary hip screw on 08/09/[address] Morataya. The procedure was performed without complication or sequelae. The patient is doing fairly well postoperatively. Vital signs and labs are stable on postoperative day #4. Patient was examined bedside today. Patient has no specific complaints. Per nursing, the patient has been ambulating with a walker with minimal assistance. Patient states he does not want to be discharged today, although his sister was contacted who is his POA and plan is to discharge to patient's facility at [facility]. No new complaints or concerns on the day of discharge. On examination, the patient is sitting up in bed. He is alert and oriented 3. On his inspection of the left hip, there are clean, dry, intact surgical dressings in place. No bleeding or drainage the dressings. There is mild swelling of the thigh, the thigh soft and compressible. Motor and sensory function is intact of the left lower extremity. Left lower extremity warm and well perfused. Calf is nontender. Patient is discharged to [facility] today in good condition, pending medical clearance. Patient will follow-up with Dr. Morataya in the office in 2 weeks. Please see med rec for accurate list of discharge medication. Plan - Discharge Summary Discharge Rx Participant: No New Discharge Prescriptions: New HYDROcodone/APAP 5-325MG [[place] 5-325] 1 tab PO Q6HR PRN 7 Days #28 tab PRN Reason: Pain Aspirin 81 mg PO BID 30 Days #60 tab Docusate [Colace] 100 mg PO BID #60 capsule No Action LORazepam [Ativan] 1 mg PO QAM Escitalopram [Lexapro] 10 mg PO DAILY Donepezil [Aricept] 5 mg PO HS LORazepam [Ativan] 0.5 mg PO HS risperiDONE [RisperDAL] 3 mg PO BID traZODone HCL 200 mg PO HS Discharge Medication List Donepezil [Aricept] 5 mg PO HS 08/08/22 [History] Escitalopram [Lexapro] 10 mg PO DAILY 08/08/22 [History] LORazepam [Ativan] 0.5 mg PO HS 08/08/22 [History] LORazepam [Ativan] 1 mg PO QAM 08/08/22 [History] risperiDONE [RisperDAL] 3 mg PO BID 08/08/22 [History] traZODone HCL 200 mg PO HS 08/08/22 [History] Aspirin 81 mg PO BID 30 Days #60 tab 08/13/22 [Rx] Docusate [Colace] 100 mg PO BID #60 capsule 08/13/22 [Rx] HYDROcodone/APAP 5-325MG [[place] 5-325] 1 tab PO Q6HR PRN 7 Days #28 tab 08/13/22 [Rx] Follow up Appointment(s)/Referral(s): [facility] [NON-STAFF] - As Needed (walker) [facility],Clinic [Primary Care Provider] - 1-2 days Herman Morataya MD [Medical Doctor] - 2 Weeks Activity/Diet/Wound Care/Special Instructions: Weight-bear to tolerance on operative extremity with a walker. Up with assistance. Continue physical therapy to increase mobilization. Take pain medications as needed. Take aspirin 81 mg twice a day 4 weeks for DVT prophylaxis. Leave operative dressings in place until follow-up in the office. May shower over dressing. Follow-up at [facility] in 2 weeks. Call the office with any questions or concerns, Home care orders faxed to the OR who will be arranging home care. Please call [facility] to follow up on home care: #[phone].
--- NOTE | 2022-08-13 12:43 | P.PN ---
Subjective Progress Note Date: 08/13/22 (delayed charting seen at 0930) Patient is a 71 yo CM with hx of PTSD, anxiey and bipolar disorder who was admitted for left hip fracture after a mechanical fall. Patient seen and examined at bedside. No chest pain, no shortness of breath, no nausea, no vomiting. Still having pain in his hip. General: non toxic, no distress, appears at stated age Derm: warm, dry Head: atraumatic, normocephalic, symmetric Eyes: EOMI, no lid lag, anicteric sclera Mouth: no lip lesion, mucus membranes moist Cardiovascular: S1S2 reg, no murmur Lungs: CTA bilateral, no rhonchi, no rales , no accessory muscle use Ext: no gross muscle atrophy, no edema, no contractures Neuro: no focal neuro deficits Psych: Alert, oriented, appropriate affect Assessment/Plan: Left femoral fracture s/p IM nailing, being managed by ortho Macrocytic anemia, component of acute blood loss, anticipated outcome of s urgery. -Hg 11.7 MCV 103.4 - follow CBC Chronic conditions: PTSD, depression -Continue with home meds - home med recs addressed. Medically optimized for discharge. Active Medications Generic Name Dose Route Start Last Admin Trade Name Freq PRN Reason Stop Dose Admin Hydrocodone Bitart/Acetaminophen 1 each 08/08/22 12:07 08/11/22 15:13 Hydrocodone/Apap 5-325mg 1 Each Tab PO 1 each Q4HR PRN Administration Moderate Pain (Scale 4 to 6) Al Hydroxide/Mg Hydroxide 15 ml 08/08/22 12:07 Mag Hydrox/Al Hydrox/Simeth 30 Ml Cup PO Q6HR PRN Indigestion Aspirin 81 mg 08/09/22 21:00 08/13/22 08:58 Aspirin 81 Mg PO 81 mg BID KHALIDA Administration Docusate Sodium 100 mg 08/08/22 12:07 Docusate 100 Mg Cap PO BID PRN Constipation Donepezil HCl 5 mg 08/08/22 21:00 08/12/22 21:10 Donepezil 5 Mg Tab PO 5 mg HS KHALIDA Administration Escitalopram Oxalate 10 mg 08/09/22 09:00 08/13/22 08:58 Escitalopram 10 Mg Tab PO 10 mg DAILY KHALIDA Administration Hydromorphone HCl 0.125 mg 08/09/22 18:56 Hydromorphone 0.5 Mg/0.5 Ml Syringe IVP Q3HR PRN Pain Scale 1 to 3 Hydromorphone HCl 0.25 mg 08/09/22 18:56 Hydromorphone 0.5 Mg/0.5 Ml Syringe IVP Q3HR PRN Pain Scale 4 to 6 Hydromorphone HCl 0.5 mg 08/09/22 18:56 Hydromorphone 0.5 Mg/0.5 Ml Syringe IVP Q3HR PRN Pain Scale 7 to 10 Lorazepam 1 mg 08/09/22 09:00 08/13/22 08:58 Lorazepam 1 Mg Tab PO 1 mg QAM KHALIDA Administration Lorazepam 0.5 mg 08/08/22 21:00 08/12/22 21:10 Lorazepam 0.5 Mg Tab PO 0.5 mg HS KHALIDA Administration Naloxone HCl 0.2 mg 08/08/22 12:07 Naloxone 0.4 Mg/Ml 1 Ml Vial IV Q2M PRN Opioid Reversal Ondansetron HCl 4 mg 08/08/22 12:07 Ondansetron 4 Mg/2 Ml Vial IVP Q8HR PRN Nausea And Vomiting Risperidone 3 mg 08/08/22 21:00 08/13/22 08:58 Risperidone 1 Mg Tab PO 3 mg BID KHALIDA Administration Senna/Docusate Sodium 2 each 08/09/22 21:00 08/12/22 21:11 Sennosides-Docusate Sodium 1 Each Tab PO 2 each HS KHALIDA Administration Temazepam 15 mg 08/08/22 12:07 Temazepam 15 Mg Cap PO HS PRN Insomnia Trazodone HCl 200 mg 08/08/22 21:00 08/12/22 21:11 Trazodone Hcl 100 Mg Tab PO 200 mg HS KHALIDA Administration Objective - Vital Signs Vital signs: Vital Signs Temp 98.2 F 08/13/22 07:47 Pulse 79 08/13/22 07:47 Resp 16 08/13/22 07:47 BP 111/70 08/13/22 07:47 Pulse Ox 93 L 08/13/22 07:47 FiO2 Intake & Output 08/12/22 08/13/22 08/13/22 18:59 06:59 18:59 Output Total 250 Balance -250 Output: Urine 250 Other: Voiding Method Urinal Urinal Urinal # Voids 3 3 - Labs CBC & Chem 7: 08/11/22 19:31 08/08/22 12:40
[2022-08-13 14:35] VITALS: BP 113/65; PULSE 95; TEMP 97.9
== END 2022-08-13 15:45 | disposition home health service (06) | DRG 481 ==
LOC: EC 08:27 → 4SSUR 12:07
PROVIDERS: ADMIT Orthopaedic Surgery; ATTEND Orthopaedic Surgery
PROC: 0QS706Z Reposition Left Upper Femur with Intramedullary Internal Fixation Device, Open Approach (ICD-10-PCS; principal; 2022-08-09 07:30)
DX: S72.112A Displaced fracture of greater trochanter of left femur, initial encounter for closed fracture (principal); D62 Acute posthemorrhagic anemia; S72.142A Displaced intertrochanteric fracture of left femur, initial encounter for closed fracture; W01.0XXA Fall on same level from slipping, tripping and stumbling without subsequent striking against object, initial encounter; Y93.01 Activity, walking, marching and hiking; Y92.099 Unspecified place in other non-institutional residence as the place of occurrence of the external cause; F43.10 Post-traumatic stress disorder, unspecified; F31.9 Bipolar disorder, unspecified; F20.9 Schizophrenia, unspecified; F17.200 Nicotine dependence, unspecified, uncomplicated; D53.9 Nutritional anemia, unspecified; Z88.0 Allergy status to penicillin; Z79.899 Other long term (current) drug therapy
CPT/HCPCS: 71045; 72170; 73502; 80048; 85025; 85610; 85730; 93005; 99285

== ENCOUNTER 2022-10-10 06:16 | Emergency (ER) | payer OTHER, MEDICARE ==
[2022-10-10 06:27] VITALS: RESP 16; TEMP 97.9
[2022-10-10] MEDS ORDERED: SODIUM CHLORIDE 0.9% 500 ML 500 ML IV ONE (06:40)
--- NOTE | 2022-10-10 06:47 | ED ---
General Adult HPI - General Chief complaint: Fall Stated complaint: Fall Time Seen by Provider: 10/10/22 06:33 Source: patient, RN notes reviewed, old records reviewed Mode of arrival: EMS - History of Present Illness Initial comments: This is a non-toxic appearing 71-year-old male that presents via EMS from [facility] after found on the bathroom floor this morning unresponsive per EMS. The facility tested him for coronavirus since his roommate was positive and he was positive today. Patient states that he tripped over his own feet in the bathroom. States did not hit his head or lose consciousness. Does not take any blood thinners. He denies any pain or discomfort. Patient had a left femur fracture 08/08/2022. Medical history of bipolar, depression, PTSD, schizophrenia and is a daily smoker. -: hour(s) Severity scale (1-10): 0 Associated Symptoms: denies other symptoms - Related Data Home Medications Medication Instructions Recorded Confirmed Donepezil [Aricept] 5 mg PO HS 08/08/22 08/08/22 Escitalopram [Lexapro] 10 mg PO DAILY 08/08/22 08/08/22 risperiDONE [RisperDAL] 3 mg PO BID 08/08/22 08/08/22 traZODone HCL 200 mg PO HS 08/08/22 08/08/22 Previous Rx's Medication Instructions Recorded Aspirin 81 mg PO BID 30 Days #60 tab 08/13/22 Docusate [Colace] 100 mg PO BID #60 capsule 08/13/22 HYDROcodone/APAP 5-325MG [Perkins 1 tab PO Q6HR PRN 7 Days #28 tab 08/13/22 5-325] LORazepam [Ativan] 0.5 mg PO HS #3 tab 08/13/22 LORazepam [Ativan] 1 mg PO DAILY 3 Days #3 tab 08/13/22 Allergies Allergy/AdvReac Type Severity Reaction Status Date / Time Penicillins Allergy Rash/Hives Verified 10/10/22 06:27 Review of Systems ROS Statement: Those systems with pertinent positive or pertinent negative responses have been documented in the HPI. ROS Other: All systems not noted in ROS Statement are negative. Past Medical History Past Medical History: No Reported History History of Any Multi-Drug Resistant Organisms: None Reported Past Surgical History: No Surgical Hx Reported Past Anesthesia/Blood Transfusion Reactions: No Reported Reaction Past Psychological History: Anxiety, Bipolar, PTSD, Schizophrenia Smoking Status: Current every day smoker Past Alcohol Use History: None Reported Past Drug Use History: None Reported - Past Family History Father Family Medical History: Cancer General Exam Limitations: no limitations General appearance: alert, in no apparent distress Head exam: Present: atraumatic, normocephalic Eye exam: Present: normal appearance. Absent: scleral icterus, conjunctival injection, periorbital swelling ENT exam: Present: normal oropharynx Neck exam: Present: full ROM. Absent: tenderness, meningismus, lymphadenopathy Respiratory exam: Absent: respiratory distress, accessory muscle use Cardiovascular Exam: Present: regular rate GI/Abdominal exam: Present: soft Extremities exam: Present: full ROM, normal capillary refill Back exam: Present: full ROM. Absent: tenderness, paraspinal tenderness, vertebral tenderness Neurological exam: Present: alert, oriented X3, CN II-XII intact Psychiatric exam: Present: normal affect, normal mood Skin exam: Present: warm, dry, normal color. Absent: cyanosis, diaphoretic, p etechiae, pallor Course Vital Signs 10/10/22 10/10/22 06:17 08:20 Temperature 97.9 F Pulse Rate 70 73 Respiratory 16 16 Rate Blood Pressure 110/58 148/67 O2 Sat by Pulse 96 96 Oximetry EKG Findings - EKG Results: EKG: sinus rhythm (Ventricular rate of 65, AZ interval 0.190, QRS 0.76, QTC 0.402, normal sinus rhythm, normal axis), not changed from: (08/08/22) Medical Decision Making - Medical Decision Making EKG shows a ventricular rate of 65, AZ interval 0.190, QRS 0.76, QTC 0.402, normal sinus rhythm, normal axis, not changed from old Chest x-ray interpreted by me shows no evidence of focal consolidation, trachea is midline, cardiac silhouette normal size. Radiologist impression mild lateral left basilar linear atelectasis. CT of the brain and C-spine interpreted by me shows no evidence of mass or i ntracranial hemorrhage. No midline shift. Radiologist interpretation no evidence for acute fracture or subluxation of the cervical spine. Age-related atrophic and chronic small vessel ischemic change without acute intracranial process seen at this time. CBC and electrolytes are unremarkable. Patient is coronavirus positive. Vital signs are stable. He is afebrile. He was given a liter of fluids. He remains with no complaints of pain or discomfort. No dyspnea or chest pain. Discharged back to the facility with dx of Covid. Case discussed with Dr. Schultz Was pt. sent in by a medical professional or institution (, KATY, DIRECTOR OF MANAGED SERVICES, urgent care, hospital, or care home...) When possible be specific @ -long-term facility [facility] Did you speak to anyone other than the patient for history (EMS, parent, family, police, friend...)? What history was obtained from this source @ -EMS Did you review nursing and triage notes (agree or disagree)? Why? @ -I reviewed and agree with nursing and triage notes Were old charts reviewed (outside hosp., previous admission, EMS record, old EKG, old radiological studies, urgent care reports/EKG's, care home records)? Report findings @ -old EKG, medica Differential Diagnosis (chest pain, altered mental status, abdominal pain women, abdominal pain men, vaginal bleeding, weakness, fever, dyspnea, syncope, headache, dizziness, GI bleed, back pain, seizure, CVA, palpatations, mental health, musculoskeletal)? @ -Differential Altered Mental Status: Hypoglycemia, DKA, hypercapnia, ETOH, overdose, CO poisoning, trauma, myxedema coma, HTN encephalopathy, infection, encephalitis, psychosis, intercranial hemorrhage, hepatic encephalopathy, meningitis, CVA, this is not meant to be an all-inclusive list EKG interpreted by me (3pts min.). @ -As above X-rays interpreted by me (1pt min.). @ -Yes as above CT interpreted by me (1pt min.). @ -Yes as above U/S interpreted by me (1pt. min.). @ -None done What testing was considered but not performed or refused? (CT, X-rays, U/S, labs)? Why? @ -None What meds were considered but not given or refused? Why? @ -None Did you discuss the management of the patient with other professionals (professionals i.e. , KATY, DIRECTOR OF MANAGED SERVICES, lab, RT, psych nurse, protective services social worker, coremaker supervisor, teacher, labor relations officer, pension manager)? Give summary @ -No Was smoking cessation discussed for >3mins.? @ -No Was critical care preformed (if so, how long)? @ -No Were there social determinants of health that impacted care today? How? (Homelessness, low income, unemployed, alcoholism, drug addiction, transportation, low edu. Level, literacy, decrease access to med. care, custodial, re hab)? @ -No Was there de-escalation of care discussed even if they declined (Discuss DNR or withdrawal of care, Hospice)? DNR status @ -No What co-morbidities impacted this encounter? (DM, HTN, Smoking, COPD, CAD, Cancer, CVA, ARF, Chemo, Hep., AIDS, mental health diagnosis, sleep apnea, morbid obesity)? @ -Bipolar depression, PTSD, schizophrenia, smoker Was patient admitted / discharged? Hospital course, mention meds given and route, prescriptions, significant lab abnormalities, going to OR and other pertinent info. @ -Discharged Undiagnosed new problem with uncertain prognosis? @ -No Drug Therapy requiring intensive monitoring for toxicity (Heparin, Nitro, Insulin, Cardizem)? @ -No Were any procedures done? @ -No Diagnosis/symptom? @ -Fall, coronavirus Acute, or Chronic, or Acute on Chronic? @ -Acute Uncomplicated (without systemic symptoms) or Complicated (systemic symptoms)? @ -Uncomplicated Side effects of treatment? @ -No Exacerbation, Progression, or Severe Exacerbation? @ -No Poses a threat to life or bodily function? How? (Chest pain, [place], HI, pneumonia, PE, COPD, DKA, ARF, appy, cholecystitis, CVA, Diverticulitis, Homicidal, Suicidal, threat to staff... and all critical care pts) @ -No - Lab Data Result diagrams: 10/10/22 06:59 10/10/22 06:59 Lab Results 10/10/22 10/10/22 10/10/22 Range/Units 06:59 06:59 06:59 WBC 8.0 (3.8-10.6) k/uL RBC 3.99 L (4.30-5.90) m/uL Hgb 13.0 (13.0-17.5) gm/dL Hct 39.2 (39.0-53.0) % MCV 98.3 (80.0-100.0) fL MCH 32.5 (25.0-35.0) pg MCHC 33.1 (31.0-37.0) g/dL RDW 12.8 (11.5-15.5) % Plt Count 208 (150-450) k/uL MPV 7.0 Neutrophils % 80 % Lymphocytes % 10 % Monocytes % 8 % Eosinophils % 1 % Basophils % 0 % Neutrophils # 6.4 (1.3-7.7) k/uL Lymphocytes # 0.8 L (1.0-4.8) k/uL Monocytes # 0.6 (0-1.0) k/uL Eosinophils # 0.1 (0-0.7) k/uL Basophils # 0.0 (0-0.2) k/uL Sodium 136 L (137-145) mmol/L Potassium 4.6 (3.5-5.1) mmol/L Chloride 106 (98-107) mmol/L Carbon Dioxide 28 (22-30) mmol/L Anion Gap 2 mmol/L BUN 26 H (9-20) mg/dL Creatinine 1.15 (0.66-1.25) mg/dL Est GFR (CKD-EPI)AfAm 73 (>60 ml/min/1.73 sqM) Est GFR (CKD-EPI)NonAf 63 (>60 ml/min/1.73 sqM) Glucose 94 (74-99) mg/dL Calcium 8.3 L (8.4-10.2) mg/dL Magnesium 1.9 (1.6-2.3) mg/dL Total Bilirubin 0.4 (0.2-1.3) mg/dL AST 19 (17-59) U/L ALT 11 (4-49) U/L Alkaline Phosphatase 145 H (38-126) U/L Total Protein 6.0 L (6.3-8.2) g/dL Albumin 3.5 (3.5-5.0) g/dL Coronavirus (PCR) Detected A (Not Detectd) Disposition Clinical Impression: Fall, Coronavirus infection Disposition: HOME SELF-CARE Instructions (If sedation given, give patient instructions): Fall Prevention for Older Adults (ED), COVID-19 (Coronavirus Disease 2019) (ED) Additional Instructions: Rest, and increase fluid intake. Tylenol and or Motrin as needed for any discomfort or fevers. Follow-up with primary care doctor next week. Return to the emergency room with any new or concerning symptoms. Is patient prescribed a controlled substance at d/c from ED?: No Referrals: None,Stated [REFERRING] - 1-2 days Time of Disposition: 08:48
--- NOTE | 2022-10-10 08:08 | CT ---
EXAMINATION TYPE: CT brain eugenio henry DATE OF EXAM: 10/10/2022 COMPARISON: None HISTORY: Fall, Pain. Trauma CT DLP: 1389.[address] of the brain was performed. The ventricles, basal cisterns and sulci overlying the cerebral convexities demonstrate mild enlargem ent. There is no evidence for intracranial hemorrhage or sulcal effacement. There is decreased attenuatio n about the periventricular white matter and deep white matter of both cerebral hemispheres, compatib le with chronic small vessel ischemia. No mass effects are seen. If symptoms persist consider MRI. Osseous calvarium is intact. IMPRESSION: 1. Age related atrophic and chronic small vessel ischemic change without acute intracranial process seen at this time. CT Cervical Spine: Unenhanced CT of the cervical spine was performed with bone and soft tissue window settings submitted . Coronal and sagittal reconstruction is obtained. There is normal alignment and prevertebral soft tissues. No evidence for acute cervical fracture . Scattered degenerative disc disease and spondylosis. Biapical scarring. IMPRESSION: 1. No evidence for acute fracture or subluxation of the cervical spine.
--- NOTE | 2022-10-10 08:18 | XR ---
EXAMINATION TYPE: XR chest 2V DATE OF EXAM: 10/10/2022 COMPARISON: Chest x-ray August 08, 2022 HISTORY: Fall injury with pain TECHNIQUE: Frontal and lateral views of the chest are obtained. FINDINGS: Mild lateral left basilar linear atelectasis current study. Right lung is clear. No pleur al effusion or pneumothorax seen bilaterally. The cardiac silhouette size is stable and within normal limits. The osseous structures are intact. IMPRESSION: Mild lateral left basilar linear atelectasis.
[2022-10-10 08:39] LABS: Basophils % (A) 0 %; Eosinophils # (A) 0.1 k/uL (0-0.7); Eosinophils % (A) 1 %; HCT 39.2 % (39.0-53.0); Lymphocytes # (A) 0.8 k/uL (1.0-4.8); Lymphocytes % (A) 10 %; MCH 32.5 pg (25.0-35.0); MCHC 33.1 g/dL (31.0-37.0); MCV 98.3 fL (80.0-100.0); Monocytes # (A) 0.6 k/uL (0-1.0); Monocytes % (A) 8 %; Neutrophils # (A) 6.4 k/uL (1.3-7.7); Neutrophils % (A) 80 %; Platelet Count 208 k/uL (150-450); RBC 3.99 m/uL (4.30-5.90); RDW 12.8 % (11.5-15.5)
[2022-10-10 08:44] LABS: Albumin 3.5 g/dL (3.5-5.0); Calcium 8.3 mg/dL (8.4-10.2); Magnesium 1.9 mg/dL (1.6-2.3); Potassium 4.6 mmol/L (3.5-5.1); Total Bilirubin 0.4 mg/dL (0.2-1.3)
[2022-10-10 10:19] VITALS: BP 134/67; PULSE 70
== END 2022-10-10 10:19 | disposition home or self-care (01) ==
LOC: EC 06:16
DX: U07.1 COVID-19 (principal); F17.200 Nicotine dependence, unspecified, uncomplicated; F32.A Depression, unspecified; F41.9 Anxiety disorder, unspecified; Z88.0 Allergy status to penicillin; Z79.899 Other long term (current) drug therapy; W01.0XXA Fall on same level from slipping, tripping and stumbling without subsequent striking against object, initial encounter; Y92.002 Bathroom of unspecified non-institutional (private) residence as the place of occurrence of the external cause
CPT/HCPCS: 36415; 70450; 71046; 72125; 80053; 83735; 85025; 87635; 93005; 96360; 96361; 99285

== ENCOUNTER 2022-11-23 06:22 | Emergency (ER) | payer OTHER, MEDICARE ==
[2022-11-23 06:31] LABS: Glucose,Whole Blood 115 mg/dL (70-110)
--- NOTE | 2022-11-23 06:48 | ED ---
Syncope HPI - General Chief Complaint: Syncope Stated Complaint: Syncope Time Seen by Provider: 11/23/22 06:27 Source: patient, family, RN notes reviewed Mode of arrival: EMS Limitations: no limitations - History of Present Illness Initial Comments: This is a 72-year-old male who presents to the emergency department for a syncopal episode. Patient had an episode of diarrhea on the toilet this morning, and he reportedly lost consciousness for 2-3 minutes. Patient denies hitting his head or sustaining any injuries. Also denies any history of similar symptoms in the past. He does live at [facility]. They noted him to be hypotensive in the 80s/50s when EMS arrived. Denies any chest pain, shortness of breath, dizziness, or lightheadedness. The patient's brother arrived shortly afterwards. He states that the patient h as developmental delays and mental illness and is often disoriented in the morning, which improves throughout the day. He believes that the patient is currently at his baseline. The patient and the assisted living facility state that the diarrhea started today. Denies any fevers, chills, sore throat, cough, dyspnea, chest pain, palpitations, abdominal pain, nausea, vomiting, back pain, or headaches. MD Complaint: loss of consciousness - Related Data Home Medications Medication Instructions Recorded Confirmed Donepezil [Aricept] 5 mg PO HS 08/08/22 08/08/22 Escitalopram [Lexapro] 10 mg PO DAILY 08/08/22 08/08/22 risperiDONE [RisperDAL] 3 mg PO BID 08/08/22 08/08/22 traZODone HCL 200 mg PO HS 08/08/22 08/08/22 Previous Rx's Medication Instructions Recorded Aspirin 81 mg PO BID 30 Days #60 tab 08/13/22 Docusate [Colace] 100 mg PO BID #60 capsule 08/13/22 HYDROcodone/APAP 5-325MG [[place] 1 tab PO Q6HR PRN 7 Days #28 tab 08/13/22 5-325] LORazepam [Ativan] 0.5 mg PO HS #3 tab 08/13/22 LORazepam [Ativan] 1 mg PO DAILY 3 Days #3 tab 08/13/22 Allergies Allergy/AdvReac Type Severity Reaction Status Date / Time Penicillins Allergy Rash/Hives Verified 10/10/22 06:27 Review of Systems ROS Statement: Those systems with pertinent positive or pertinent negative responses have been documented in the HPI. ROS Other: All systems not noted in ROS Statement are negative. Past Medical History Past Medical History: No Reported History History of Any Multi-Drug Resistant Organisms: None Reported Past Surgical History: No Surgical Hx Reported Past Anesthesia/Blood Transfusion Reactions: No Reported Reaction Past Psychological History: Anxiety, Bipolar, PTSD, Schizophrenia Smoking Status: Current every day smoker Past Alcohol Use History: None Reported Past Drug Use History: None Reported - Past Family History Father Family Medical History: Cancer General Exam Limitations: no limitations General appearance: alert, in no apparent distress Head exam: Present: atraumatic, normocephalic, normal inspection Eye exam: Present: normal appearance, PERRL, EOMI. Absent: scleral icterus, conjunctival injection, periorbital swelling Respiratory exam: Present: normal lung sounds bilaterally. Absent: respiratory distress, wheezes, rales, rhonchi, stridor Cardiovascular Exam: Present: regular rate, normal rhythm, normal heart sounds. Absent: systolic murmur, diastolic murmur, rubs, gallop, clicks Neurological exam: Present: alert, oriented X3, CN II-XII intact Psychiatric exam: Present: normal affect, normal mood Skin exam: Present: warm, dry, intact, normal color. Absent: rash Course Vital Signs 11/23/22 11/23/22 11/23/22 06:41 07:05 08:00 Temperature 97.6 F Pulse Rate 81 82 83 Respiratory 16 16 18 Rate Blood Pressure 112/61 111/53 106/58 O2 Sat by Pulse 96 95 97 Oximetry 11/23/22 11/23/22 11/23/22 09:00 10:00 12:18 Temperature Pulse Rate 80 81 82 Respiratory 18 18 18 Rate Blood Pressure 107/78 110/65 112/78 O2 Sat by Pulse 96 96 94 L Oximetry Medical Decision Making - Medical Decision Making This is a 72-year-old male who presents to the emergency department for a synco pal episode. Was pt. sent in by a medical professional or institution? @ -No Did you speak to anyone other than the patient for history? @ -His brother Did you review nursing and triage notes? @ -Yes, and I agree, it is accurate with regards to the patient's symptoms. Were old charts reviewed? @ -No Differential Diagnosis? @ -Differential Syncope: Valvular disease, hypertrophic cardiomyopathy, pulmonary embolism, tamponade, tachycardia, bradycardia, LA, hypovolemia, hemorrhage, dissection, anemia, intracranial hemorrhage, seizure, hypoglycemia, carbon monoxide poisoning, this is not meant to be an all-inclusive list. EKG interpreted by me (3pts min.)? @ -Sinus rhythm. Ventricular rate 86 bpm, TX interval 177 ms, QRS duration 81 ms, QTC 378 ms. X-rays interpreted by me (1pt min.)? @ -Chest x-ray obtained, my interpretation identifies no localized consolidations or infiltrates. What testing was considered but not performed? (CT, X-rays, U/S, labs)? Why? @ -None What meds were considered but not given? Why? @ -None Did you discuss the management of the patient with other professionals? @ -No Did you reconcile home meds? @ -No Was smoking cessation discussed for >3mins.? @ -No Was critical care preformed (if so, how long)? @ -No Were there social determinants of health that impacted care today? How? (Homelessness, low income, unemployed, alcoholism, drug addiction, transportation, low edu. Level, literacy, decrease access to med. care, care home, rehab)? @ -No Was there de-escalation of care discussed even if they declined? (Discuss DNR or withdrawal of care, Hospice)? @ -No What co-morbidities impacted this encounter? (DM, HTN, Smoking, COPD, CAD, Cancer, CVA, Hep., AIDS, mental health diagnosis, sleep apnea, morbid obesity)? @ -Developmental delay, mental illness Was patient admitted / discharged? @ -Discharged. Lab work obtained, findings consistent with dehydration and were otherwise nonactionable. Covid, influenza, and RSV were negative. Urinalysis negative for signs of infection. Chest x-ray negative for any acute process. Patient was given a liter bolus of IV fluids. This was most likely a vasovagal episode, as when the patient was found his blood pressure was in the 80s over 50s, and is currently ranging from 105-115 systolically. Patient currently feels like he is at his baseline. His brother, who is with him, also agrees that the patient is at his baseline. He was given a dose of Imodium in the emergency department. Advised he can take [id number] Imodium as needed for diarrhea to reduce the risk of dehydration. He is instructed to remain well-hydrated and to move around slowly to reduce the likelihood of this happening in the future. Patient does live in an assisted living facility and has 24-hour heqwqv-rcu-exuuj care, and thus he and his brother are comfortable with him going home Undiagnosed new problem with uncertain prognosis? @ -None Drug Therapy requiring intensive monitoring for toxicity (Heparin, Nitro, Insuli n, Cardizem)? @ -None Were any procedures done? @ -None Diagnosis/symptom? @ -Vasovagal syncope, dehydration, diarrhea Acute, or Chronic, or Acute on Chronic? @ -Acute Uncomplicated (without systemic symptoms) or Complicated (systemic symptoms)? @ -Uncomplicated Side effects of treatment? @ -None Exacerbation, Progression, or Severe Exacerbation] @ -Not applicable Poses a threat to life or bodily function? @ -No Return precautions reviewed in depth, the patient is instructed to return to the emergency department with any new, worsening, or concerning symptoms. Patient verbalized understanding. This case was discussed in detail with the attending ED physician, Dr. Aguilera. Presentation, findings, and treatment plan discussed in detail as well. - Lab Data Result diagrams: 11/23/22 06:56 11/23/22 06:56 Lab Results 11/23/22 11/23/22 11/23/22 Range/Units 06:30 06:56 06:56 WBC 6.9 (3.8-10.6) k/uL RBC 4.23 L (4.30-5.90) m/uL Hgb 13.8 (13.0-17.5) gm/dL Hct 41.9 (39.0-53.0) % MCV 99.0 (80.0-100.0) fL MCH 32.5 (25.0-35.0) pg MCHC 32.8 (31.0-37.0) g/dL RDW 13.7 (11.5-15.5) % Plt Count 113 L (150-450) k/uL MPV 7.6 Neutrophils % 90 % Lymphocytes % 4 % Monocytes % 5 % Eosinophils % 1 % Basophils % 0 % Neutrophils # 6.2 (1.3-7.7) k/uL Lymphocytes # 0.3 L (1.0-4.8) k/uL Monocytes # 0.4 (0-1.0) k/uL Eosinophils # 0.0 (0-0.7) k/uL Basophils # 0.0 (0-0.2) k/uL PT (9.0-12.0) sec INR (<1.2) APTT (22.0-30.0) sec Sodium 136 L (137-145) mmol/L Potassium 4.6 (3.5-5.1) mmol/L Chloride 103 (98-107) mmol/L Carbon Dioxide 24 (22-30) mmol/L Anion Gap 9 mmol/L BUN 33 H (9-20) mg/dL Creatinine 1.25 (0.66-1.25) mg/dL Est GFR (CKD-EPI)AfAm 66 (>60 ml/min/1.73 sqM) Est GFR (CKD-EPI)NonAf 57 (>60 ml/min/1.73 sqM) Glucose 108 H (74-99) mg/dL POC Glucose (mg/dL) 115 H (70-110) mg/dL POC Glu Business Technology Teacher ID Qasim Mccormick Calcium 8.1 L (8.4-10.2) mg/dL Magnesium 1.7 (1.6-2.3) mg/dL Total Bilirubin 0.6 (0.2-1.3) mg/dL AST 23 (17-59) U/L ALT 13 (4-49) U/L Alkaline Phosphatase 99 (38-126) U/L Troponin I (0.000-0.034) ng/mL Total Protein 6.1 L (6.3-8.2) g/dL Albumin 3.5 (3.5-5.0) g/dL Urine Color Urine Appearance (Clear) Urine pH (5.0-8.0) Ur Specific [place] (1.001-1.035) Urine Protein (Negative) Urine Glucose (UA) (Negative) Urine Ketones (Negative) Urine Blood (Negative) Urine Nitrite (Negative) Urine Bilirubin (Negative) Urine Urobilinogen (<2.0) mg/dL Ur Leukocyte Esterase (Negative) Influenza Type A (PCR) (Not Detectd) Influenza Type B (PCR) (Not Detectd) RSV (PCR) (Not Detectd) SARS-CoV-2 (PCR) (Not Detectd) 11/23/22 11/23/22 11/23/22 Range/Units 06:56 06:56 08:30 WBC (3.8-10.6) k/uL RBC (4.30-5.90) m/uL Hgb (13.0-17.5) gm/dL Hct (39.0-53.0) % MCV (80.0-100.0) fL MCH (25.0-35.0) pg MCHC (31.0-37.0) g/dL RDW (11.5-15.5) % Plt Count (150-450) k/uL MPV Neutrophils % % Lymphocytes % % Monocytes % % Eosinophils % % Basophils % % Neutrophils # (1.3-7.7) k/uL Lymphocytes # (1.0-4.8) k/uL Monocytes # (0-1.0) k/uL Eosinophils # (0-0.7) k/uL Basophils # (0-0.2) k/uL PT 10.3 (9.0-12.0) sec INR 1.0 (<1.2) APTT 23.0 (22.0-30.0) sec Sodium (137-145) mmol/L Potassium (3.5-5.1) mmol/L Chloride (98-107) mmol/L Carbon Dioxide (22-30) mmol/L Anion Gap mmol/L BUN (9-20) mg/dL Creatinine (0.66-1.25) mg/dL Est GFR (CKD-EPI)AfAm (>60 ml/min/1.73 sqM) Est GFR (CKD-EPI)NonAf (>60 ml/min/1.73 sqM) Glucose (74-99) mg/dL POC Glucose (mg/dL) (70-110) mg/dL POC Glu Business Technology Teacher ID Calcium (8.4-10.2) mg/dL Magnesium (1.6-2.3) mg/dL Total Bilirubin (0.2-1.3) mg/dL AST (17-59) U/L ALT (4-49) U/L Alkaline Phosphatase (38-126) U/L Troponin I <0.012 (0.000-0.034) ng/mL Total Protein (6.3-8.2) g/dL Albumin (3.5-5.0) g/dL Urine Color Urine Appearance (Clear) Urine pH (5.0-8.0) Ur Specific [place] (1.001-1.035) Urine Protein (Negative) Urine Glucose (UA) (Negative) Urine Ketones (Negative) Urine Blood (Negative) Urine Nitrite (Negative) Urine Bilirubin (Negative) Urine Urobilinogen (<2.0) mg/dL Ur Leukocyte Esterase (Negative) Influenza Type A (PCR) Not Detected (Not Detectd) Influenza Type B (PCR) Not Detected (Not Detectd) RSV (PCR) Not Detected (Not Detectd) SARS-CoV-2 (PCR) Not Detected (Not Detectd) 11/23/22 Range/Units Unknown WBC (3.8-10.6) k/uL RBC (4.30-5.90) m/uL Hgb (13.0-17.5) gm/dL Hct (39.0-53.0) % MCV (80.0-100.0) fL MCH (25.0-35.0) pg MCHC (31.0-37.0) g/dL RDW (11.5-15.5) % Plt Count (150-450) k/uL MPV Neutrophils % % Lymphocytes % % Monocytes % % Eosinophils % % Basophils % % Neutrophils # (1.3-7.7) k/uL Lymphocytes # (1.0-4.8) k/uL Monocytes # (0-1.0) k/uL Eosinophils # (0-0.7) k/uL Basophils # (0-0.2) k/uL PT (9.0-12.0) sec INR (<1.2) APTT (22.0-30.0) sec Sodium (137-145) mmol/L Potassium (3.5-5.1) mmol/L Chloride (98-107) mmol/L Carbon Dioxide (22-30) mmol/L Anion Gap mmol/L BUN (9-20) mg/dL Creatinine (0.66-1.25) mg/dL Est GFR (CKD-EPI)AfAm (>60 ml/min/1.73 sqM) Est GFR (CKD-EPI)NonAf (>60 ml/min/1.73 sqM) Glucose (74-99) mg/dL POC Glucose (mg/dL) (70-110) mg/dL POC Glu Business Technology Teacher ID Calcium (8.4-10.2) mg/dL Magnesium (1.6-2.3) mg/dL Total Bilirubin (0.2-1.3) mg/dL AST (17-59) U/L ALT (4-49) U/L Alkaline Phosphatase (38-126) U/L Troponin I (0.000-0.034) ng/mL Total Protein (6.3-8.2) g/dL Albumin (3.5-5.0) g/dL Urine Color Light Yellow Urine Appearance Clear (Clear) Urine pH 5.5 (5.0-8.0) Ur Specific [place] 1.016 (1.001-1.035) Urine Protein Negative (Negative) Urine Glucose (UA) Negative (Negative) Urine Ketones Negative (Negative) Urine Blood Negative (Negative) Urine Nitrite Negative (Negative) Urine Bilirubin Negative (Negative) Urine Urobilinogen <2.0 (<2.0) mg/dL Ur Leukocyte Esterase Negative (Negative) Influenza Type A (PCR) (Not Detectd) Influenza Type B (PCR) (Not Detectd) RSV (PCR) (Not Detectd) SARS-CoV-2 (PCR) (Not Detectd) - Radiology Data Radiology results: report reviewed, image reviewed Disposition Clinical Impression: Vasovagal syncope, Diarrhea, Dehydration Disposition: HOME SELF-CARE Instructions (If sedation given, give patient instructions): Dehydration (ED), Acute Diarrhea (ED), Syncope in Older Adults (ED) Additional Instructions: Return to the emergency department with any new, worsening, or concerning symptoms. Make sure that you remain very well-hydrated. You can take [id number] Imodium as prescribed for management of the diarrhea. Make sure that you move around very slowly to prevent falls or similar episodes from happening in the future. Follow up with your primary care provider in 1-2 days. Is patient prescribed a controlled substance at d/c from ED?: No Referrals: [facility],Clinic [Primary Care Provider] - 1-2 days
[2022-11-23 06:49] VITALS: TEMP 97.6
--- NOTE | 2022-11-23 07:04 | XR ---
EXAMINATION TYPE: XR chest 1V DATE OF EXAM: 11/23/2022 6:55 AM COMPARISON: Chest radiographs from 10/10/2022 TECHNIQUE: XR chest 1V Portable AP radiograph of the chest. CLINICAL INDICATION:Male, 72 years old with history of syncope; FINDINGS: Lungs/Pleura: There is no evidence of pleural effusion, focal consolidation, or pneumothorax. Chronic senescent parenchymal change. Pulmonary vascularity: Unremarkable. Heart/mediastinum: Cardiomediastinal silhouette is unremarkable. Atherosclerotic calcifications are seen in the aorta. Musculoskeletal: No acute osseous pathology. IMPRESSION: No acute cardiopulmonary disease/process.
[2022-11-23 07:12] LABS: Basophils % (A) 0 %; Eosinophils % (A) 1 %; HCT 41.9 % (39.0-53.0); HGB 13.8 gm/dL (13.0-17.5); Lymphocytes # (A) 0.3 k/uL (1.0-4.8); Lymphocytes % (A) 4 %; MCH 32.5 pg (25.0-35.0); MCHC 32.8 g/dL (31.0-37.0); Mean Platelet Volume 7.6; Monocytes # (A) 0.4 k/uL (0-1.0); Monocytes % (A) 5 %; Neutrophils # (A) 6.2 k/uL (1.3-7.7); Neutrophils % (A) 90 %; Platelet Count 113 k/uL (150-450); RBC 4.23 m/uL (4.30-5.90); RDW 13.7 % (11.5-15.5); WBC 6.9 k/uL (3.8-10.6)
[2022-11-23 07:34] LABS: Albumin 3.5 g/dL (3.5-5.0); Calcium 8.1 mg/dL (8.4-10.2); Magnesium 1.7 mg/dL (1.6-2.3); Total Bilirubin 0.6 mg/dL (0.2-1.3); Total Protein 6.1 g/dL (6.3-8.2)
[2022-11-23 07:49] LABS: Potassium 4.6 mmol/L (3.5-5.1)
[2022-11-23] MEDS ORDERED: SODIUM CHLORIDE 0.9% 1,000 ML IV STA (08:08)
[2022-11-23 08:09] VITALS: RESP 18
[2022-11-23 09:00] LABS: Prothrombin Time 10.3 sec (9.0-12.0)
[2022-11-23] MEDS ORDERED: LOPERAMIDE 2 MG CAP PO STA (09:47)
[2022-11-23 11:44] LABS: Appearance,Urine Clear (Clear); Bilirubin,Urine Negative (Negative); Blood,Urine Negative (Negative); Color,Urine Light Yellow; Glucose,Urine (UA) Negative (Negative); Ketones,Urine Negative (Negative); Leukocyte Esterase,Urine Negative (Negative); Nitrite,Urine Negative (Negative); PH, Urine 5.5 (5.0-8.0); Protein,Urine Negative (Negative); Specific Gravity,Urine 1.016 (1.001-1.035); Urobilinogen,Urine <2.0 mg/dL (<2.0)
[2022-11-23 12:20] VITALS: BP 112/78; PULSE 82
== END 2022-11-23 12:20 | disposition home or self-care (01) ==
LOC: EC 06:22
DX: R55 Syncope and collapse (principal); R19.7 Diarrhea, unspecified; E86.0 Dehydration; F41.9 Anxiety disorder, unspecified; F31.9 Bipolar disorder, unspecified; F17.200 Nicotine dependence, unspecified, uncomplicated; Z79.899 Other long term (current) drug therapy; Z88.0 Allergy status to penicillin; Z20.822 Contact with and (suspected) exposure to COVID-19
CPT/HCPCS: 36415; 71045; 80053; 81003; 83735; 84484; 85025; 85610; 85730; 87636; 93005; 99284

== ENCOUNTER 2024-12-23 10:11 | Emergency (ER) | payer MEDICARE, OTHER ==
--- NOTE | 2024-12-23 10:17 | ED ---
Weakness HPI - General Stated complaint: weakness Time Seen by Provider: 12/23/24 10:13 Source: RN notes reviewed, old records reviewed Mode of arrival: EMS Limitations: no limitations - History of Present Illness Initial comments: This is a 74-year-old male to the ER for evaluation patient presents today for evaluation of weakness concern for persistent weakness may be dehydrated. Patient himself has no complaints here in the ER no headache chest pain shortness breath abdominal pain. No recent intermittent Medications, no fevers MD Complaint: generalized weakness, lack of energy -: days(s) Location: generalized Severity: moderate Severity scale (1-10): 5 Consistency: constant Improves with: none Worsens with: none Context: history of similar Associated Symptoms: confusion, loss of appetite - Related Data Home Medications Medication Instructions Recorded Confirmed risperiDONE [RisperDAL] 3 mg PO BID@0800,199908/08/22 12/23/24 traZODone HCL 100 mg PO HS@199908/08/22 12/23/24 Calcium Carbonate 1,000 mg PO DAILY@0812/23/24 12/23/24 Cholecalciferol [Vitamin D3 (25 25 mcg PO DAILY@0812/23/24 12/23/24 Mcg = 1000 Iu)] Escitalopram [Lexapro] 20 mg PO HS@199912/23/24 12/23/24 LORazepam [Ativan] 0.5 mg PO TID@0800,1400,199912/23/24 12/23/24 oxyBUTYnin chloride [Ditropan] 5 mg PO BID@0800,199912/23/24 12/23/24 Allergies Allergy/AdvReac Type Severity Reaction Status Date / Time Penicillins Allergy Rash/Hives Verified 12/23/24 10:32 Review of Systems ROS Statement: Those systems with pertinent positive or pertinent negative responses have been documented in the HPI. ROS Other: All systems not noted in ROS Statement are negative. Past Medical History Past Medical History: No Reported History History of Any Multi-Drug Resistant Organisms: None Reported Past Surgical History: No Surgical Hx Reported Past Anesthesia/Blood Transfusion Reactions: No Reported Reaction Past Psychological History: Anxiety, Bipolar, PTSD, Schizophrenia Smoking Status: Current every day smoker Past Alcohol Use History: None Reported Past Drug Use History: None Reported - Past Family History Father Family Medical History: Cancer General Exam General appearance: alert, in no apparent distress Head exam: Present: atraumatic, normocephalic, normal inspection Eye exam: Present: normal appearance, PERRL, EOMI. Absent: scleral icterus, conjunctival injection, periorbital swelling ENT exam: Present: normal exam, mucous membranes moist Neck exam: Present: normal inspection. Absent: tenderness, meningismus, lymphadenopathy Respiratory exam: Present: normal lung sounds bilaterally. Absent: respiratory distress, wheezes, rales, rhonchi, stridor Cardiovascular Exam: Present: regular rate, normal rhythm, normal heart sounds. Absent: systolic murmur, diastolic murmur, rubs, gallop, clicks GI/Abdominal exam: Present: soft, normal bowel sounds. Absent: distended, tenderness, guarding, rebound, rigid Extremities exam: Present: normal inspection, full ROM, normal capillary refill. Absent: tenderness, pedal edema, joint swelling, calf tenderness Back exam: Present: normal inspection Neurological exam: Present: alert, oriented X3, CN II-XII intact Psychiatric exam: Present: normal affect, normal mood Skin exam: Present: warm, dry, intact, normal color. Absent: rash Course Vital Signs 12/23/24 12/23/24 10:49 12:27 Temperature 98.6 F Pulse Rate 87 78 Respiratory 18 18 Rate Blood Pressure 120/57 121/57 O2 Sat by Pulse 94 L 98 Oximetry - Reevaluation(s) Reevaluation #1: Medical records reviewed Reevaluation #2: Patient symptoms improved Reevaluation #3: Patient informed of results questions answered Reevaluation #4: Was pt. sent in by a medical professional or institution (, PA, [employer]P DEVELOPER, urgent care, hospital, or [facility]...) When possible be specific @ -no Did you speak to anyone other than the patient for history (EMS, parent, family, police, friend...)? What history was obtained from this source @ -no Did you review nursing and triage notes (agree or disagree)? Why? @ -agree Are old charts reviewed (outside hosp., previous admission, EMS record, old EKG, old radiological studies, urgent care reports/EKG's, [facility] records)? Report findings @ -yes Differential Diagnosis (chest pain, altered mental status, abdominal pain women, abdominal pain men, vaginal bleeding, weakness, fever, dyspnea, syncope, headache, dizziness, GI bleed, back pain, seizure, CVA, palpatations, mental health, musculoskeletal)? @ -prior EKG interpreted by me (3pts min.). @ -yes X-rays interpreted by me (1pt min.). @ -yes negative for acute disease CT interpreted by me (1pt min.). @ -no U/S interpreted by me (1pt. min.). @ -no What testing was considered but not performed or refused? (CT, X-rays, U/S, labs)? Why? @ -none What meds were considered but not given or refused? Why? @ -none Did you discuss the management of the patient with other professionals (professionals i.e. , PA, [employer] DEVELOPER, lab, RT, psych nurse, social professionals, cleat maker, teacher, combatant diver officer, case management assistant)? Give summary @ -no Was smoking cessation discussed for >3mins.? @ -no Was critical care preformed (if so, how long)? @ -no Were there social determinants of health that impacted care today? How? (Homelessness, low income, unemployed, alcoholism, drug addiction, transportation, low edu. Level, literacy, decrease access to med. care, correction, rehab)? @ -none Was there de-escalation of care discussed even if they declined (Discuss DNR or withdrawal of care, Hospice)? DNR status @ -no What co-morbidities impacted this encounter? (DM, HTN, Smoking, COPD, CAD, Cancer, CVA, ARF, Chemo, Hep., AIDS, mental health diagnosis, sleep apnea, morbid obesity)? @ -none Was patient admitted / discharged? Hospital course, mention meds given and route, prescriptions, significant lab abnormalities, going to OR and other pertinent info. @ - 74 male to ER with weakness and dehydration, normal x-ray normal lab testing here in the ER feels improved throughout ER stay can be discharged home Discharge Undiagnosed new problem with uncertain prognosis? @ -no Drug Therapy requiring intensive monitoring for toxicity (Heparin, Nitro, Insulin, Cardizem)? @ -no Were any procedures done? @ -no Diagnosis/symptom? @ -Weakness and dehydration Acute, or Chronic, or Acute on Chronic? @ -Acute Uncomplicated (without systemic symptoms) or Complicated (systemic symptoms)? @ -Complicated Side effects of treatment? @ -no Exacerbation, Progression, or Severe Exacerbation? @ -exacerbation Poses a threat to life or bodily function? How? (Chest pain, [place], [place], pneumonia, PE, COPD, DKA, ARF, appy, cholecystitis, CVA, Diverticulitis, Homicidal, Suicidal, threat to staff... and all critical care pts) @ -yes extremes of age Reevaluation #5: Differential Weakness: Hypoglycemia, shock, sepsis, hyponatremia, anemia, infection, [place], ETOH, adverse medicine reaction, overdose, stroke, this is not meant to be an all-inclusive list. EKG Findings - EKG Comments: EKG Findings:: EKG is sinus 94 IL 184 QRS 83 QTc 384 - EKG Results: EKG: interpreted by [facility]AK[facility] Medical Decision Making - Medical Decision Making 74 male to ER with weakness and dehydration, normal x-ray normal lab testing here in the ER feels improved throughout ER stay can be discharged home - Lab Data Result diagrams: 12/23/24 10:33 12/23/24 11:12 Lab Results 12/23/24 12/23/24 12/23/24 Range/Units 10:33 11:12 11:12 WBC 11.20 H (4.50-10.00) 10*3/uL RBC 4.35 L (4.40-5.60) 10*6/uL Hgb 14.4 (13.0-17.0) g/dL Hct 41.2 (39.6-50.0) % MCV 94.7 (80.0-97.0) fL MCH 33.1 H (27.0-32.0) pg MCHC 35.0 (32.0-37.0) g/dL Plt Count 200 (140-440) 10*3/uL MPV 9.5 (9.5-12.2) fL Immature Gran % (Auto) 0.6 % Neutrophils % 82.7 % Lymphocytes % 5.5 % Monocytes % 10.5 % Eosinophils % 0.3 % Basophils % 0.4 % Immature Gran # 0.07 H (0.00-0.04) 10*3/uL Neutrophils # 9.51 H (1.80-7.70) 10*3/uL Lymphocytes # 0.63 L (0.90-5.00) 10*3/uL Monocytes # 1.21 H (0.20-1.00) 10*3/uL Eosinophils # 0.03 L (0.04-0.35) 10*3/uL Basophils # 0.05 (0.00-0.10) 10*3/uL Manual Slide Review Performed Immature Plt Fraction 1.7 (1.1-6.1) % PT (10.0-12.5) sec INR (<1.2) APTT (22.0-30.0) sec Sodium (137-145) mmol/L Potassium (3.5-5.1) mmol/L Chloride (98-107) mmol/L Carbon Dioxide (22-30) mmol/L Anion Gap mmol/L BUN (9-20) mg/dL Creatinine (0.66-1.25) mg/dL Est GFR (CKD-EPI)AfAm (>60 ml/min/1.73 sqM) Est GFR (CKD-EPI)NonAf (>60 ml/min/1.73 sqM) Glucose (74-99) mg/dL Plasma Lactic Acid Yazan 1.2 (0.7-2.0) mmol/L Calcium (8.4-10.2) mg/dL Phosphorus (2.5-4.5) mg/dL Magnesium (1.6-2.3) mg/dL Total Bilirubin (0.2-1.3) mg/dL AST (17-59) U/L ALT (4-49) U/L Alkaline Phosphatase (38-126) U/L Troponin I 0.015 (0.000-0.034) ng/mL NT-Pro-B Natriuret Pep pg/mL Total Protein (6.3-8.2) g/dL Albumin (3.5-5.0) g/dL 12/23/24 12/23/24 Range/Units 11:12 11:12 WBC (4.50-10.00) 10*3/uL RBC (4.40-5.60) 10*6/uL Hgb (13.0-17.0) g/dL Hct (39.6-50.0) % MCV (80.0-97.0) fL MCH (27.0-32.0) pg MCHC (32.0-37.0) g/dL Plt Count (140-440) 10*3/uL MPV (9.5-12.2) fL Immature Gran % (Auto) % Neutrophils % % Lymphocytes % % Monocytes % % Eosinophils % % Basophils % % Immature Gran # (0.00-0.04) 10*3/uL Neutrophils # (1.80-7.70) 10*3/uL Lymphocytes # (0.90-5.00) 10*3/uL Monocytes # (0.20-1.00) 10*3/uL Eosinophils # (0.04-0.35) 10*3/uL Basophils # (0.00-0.10) 10*3/uL Manual Slide Review Immature Plt Fraction (1.1-6.1) % PT 10.5 (10.0-12.5) sec INR 0.9 (<1.2) APTT 22.6 (22.0-30.0) sec Sodium 136 L (137-145) mmol/L Potassium 4.6 (3.5-5.1) mmol/L Chloride 101 (98-107) mmol/L Carbon Dioxide 26 (22-30) mmol/L Anion Gap 9 mmol/L BUN 15 (9-20) mg/dL Creatinine 1.65 H (0.66-1.25) mg/dL Est GFR (CKD-EPI)AfAm 46 (>60 ml/min/1.73 sqM) Est GFR (CKD-EPI)NonAf 40 (>60 ml/min/1.73 sqM) Glucose 107 H (74-99) mg/dL Plasma Lactic Acid Yazan (0.7-2.0) mmol/L Calcium 10.3 H (8.4-10.2) mg/dL Phosphorus 3.2 (2.5-4.5) mg/dL Magnesium 2.2 (1.6-2.3) mg/dL Total Bilirubin 0.7 (0.2-1.3) mg/dL AST 20 (17-59) U/L ALT 10 (4-49) U/L Alkaline Phosphatase 103 (38-126) U/L Troponin I (0.000-0.034) ng/mL NT-Pro-B Natriuret Pep 325 pg/mL Total Protein 6.8 (6.3-8.2) g/dL Albumin 4.2 (3.5-5.0) g/dL - EKG Data -: EKG Interpreted by Ma - Radiology Data Radiology results: report reviewed (Chest x-ray is negative for acute disease), image reviewed Disposition Clinical Impression: Dehydration, Weakness Disposition: HOME SELF-CARE Condition: Fair Instructions (If sedation given, give patient instructions): Weakness (ED) Is patient prescribed a controlled substance at d/c from ED?: No Referrals: James Burgess DO [Primary Care Provider] - 1-2 days Time of Disposition: 11:50
[2024-12-23 10:51] VITALS: RESP 18; TEMP 98.6
[2024-12-23] MEDS: SODIUM CHLORIDE 0.9% 1,000 ML IV ONE (10:53)
[2024-12-23 10:56] LABS: Basophils # (A) 0.05 10*3/uL (0.00-0.10); Basophils % (A) 0.4 %; Eosinophils # (A) 0.03 10*3/uL (0.04-0.35); Eosinophils % (A) 0.3 %; HCT 41.2 % (39.6-50.0); HGB 14.4 g/dL (13.0-17.0); Immature Platelet Fraction 1.7 % (1.1-6.1); Lymphocytes # (A) 0.63 10*3/uL (0.90-5.00); Lymphocytes % (A) 5.5 %; MCH 33.1 pg (27.0-32.0); MCV 94.7 fL (80.0-97.0); Mean Platelet Volume 9.5 fL (9.5-12.2); Monocytes # (A) 1.21 10*3/uL (0.20-1.00); Monocytes % (A) 10.5 %; Neutrophils # (A) 9.51 10*3/uL (1.80-7.70); Neutrophils % (A) 82.7 %; RBC 4.35 10*6/uL (4.40-5.60); RDW 12.9 % (11.5-14.5)
--- NOTE | 2024-12-23 11:24 | XR ---
EXAMINATION TYPE: XR chest 2V DATE OF EXAM: 12/23/2024 11:08 AM COMPARISON: 11/23/2022 CLINICAL INDICATION: Male, 74 years old with history of Weakness, TECHNIQUE: XR chest 2V view(s) obtained. FINDINGS: The heart size is normal. The pulmonary vasculature is normal. Posterior costophrenic angle infiltrate is present on the lateral projection. Correlate for atelectas is or pneumonia.. IMPRESSION: 1. There appears to be a posterior costophrenic sulcus infiltrate. Correlate for atelectasis or pneum onia. [facility], , 12/23/2024 11:22 AM
[2024-12-23 11:47] LABS: ALT 10 U/L (4-49); AST 20 U/L (17-59); African American GFR (CKD) 46 (>60 ml/min/1.73 sqM); Albumin 4.2 g/dL (3.5-5.0); Alkaline Phosphatase 103 U/L (38-126); Anion Gap 9 mmol/L; Blood Urea Nitrogen 15 mg/dL (9-20); Calcium 10.3 mg/dL (8.4-10.2); Carbon Dioxide 26 mmol/L (22-30); Chloride 101 mmol/L (98-107); Glucose 107 mg/dL (74-99); Magnesium 2.2 mg/dL (1.6-2.3); Non-African American GFR(CKD) 40 (>60 ml/min/1.73 sqM); Phosphorus 3.2 mg/dL (2.5-4.5); Potassium 4.6 mmol/L (3.5-5.1); Sodium 136 mmol/L (137-145); Total Bilirubin 0.7 mg/dL (0.2-1.3); Total Protein 6.8 g/dL (6.3-8.2)
[2024-12-23 11:52] LABS: INR 0.9 (<1.2); Partial Thromboplastin Time 22.6 sec (22.0-30.0); Prothrombin Time 10.5 sec (10.0-12.5)
[2024-12-23 11:55] LABS: NT-Pro-B-Type Natriuretic Pept 325 pg/mL
[2024-12-23 12:20] LABS: Platelet Count 200 10*3/uL (140-440)
[2024-12-23 12:28] VITALS: BP 121/57; PULSE 78
== END 2024-12-23 12:28 | disposition home or self-care (01) ==
LOC: EC 10:11
DX: E86.0 Dehydration (principal); F17.200 Nicotine dependence, unspecified, uncomplicated; Z88.0 Allergy status to penicillin
CPT/HCPCS: 36415; 71046; 80053; 83605; 83735; 83880; 84100; 84484; 85025; 85610; 85730; 93005; 96360; 96361; 99285